=== PATIENT | female | born 1995 | race Caucasian/White ===

== ENCOUNTER 2023-07-07 18:25 | Emergency (ER) | payer MEDICAID, SELFPAY ==
[2023-07-07 18:43] VITALS: BP 140/93; PULSE 78; RESP 20; TEMP 35.6; O2SAT 96; BMI 39.2
--- NOTE | 2023-07-07 19:10 | ED.CHESTPAIN ---
HPI - Chest Pain General Chief Complaint: Chest Pain Stated Complaint: Vertigo/BP issues Time Seen by Provider: 07/07/23 19:01 History of Present Illness HPI narrative: Patient is a 27-year-old woman with history of lower extremity DVT who presents with anterior chest pain. Patient will find this morning but did have minor migraine. She took her a.m. gala D and rested when she woke she was watching television did feel some minor chest pain. This was late this afternoon. Patient presents to the emergency room feeling still somewhat shaky but no further symptoms. No significant headache chest pain shortness a breath orthopnea PND nausea or vomiting. Patient is not on anticoagulation has not had a blood clot in quite some time. No other significant symptoms noted. Patient has been compliant with her other medications. Related Data Home Medications Medication Instructions Recorded Confirmed albuterol sulfate 90 mcg/actuation 1 inh inhalation Q4-6H PRN 07/07/23 07/07/23 aerosol inhaler (ProAir HFA) duloxetine 60 mg capsule,delayed 60 mg PO DAILY 07/07/23 07/07/23 release (Cymbalta) galcanezumab-gnlm 120 mg/mL mg subcut 07/07/23 subcutaneous pen injector (Emgality Pen) ondansetron HCl 4 mg tablet 4 mg PO Q8-12H PRN 07/07/23 07/07/23 propranolol 07/07/23 Allergies Allergy/AdvReac Type Severity Reaction Status Date / Time amoxicillin Allergy Verified 07/07/23 18:35 Review of Systems Status of ROS Reports: 10 or more systems reviewed and unremarkable except as noted in History and below PFSH PFSH Medical History Migraine headache ?G43.909 - Migraine, unspecified, not intractable, without status migrainosus (ICD-10) DVT (deep vein thrombosis) in ?O22.30 - Deep phlebothrombosis in , unspecified trimester (ICD-10) Social History Smoking Status: Never smoker Do you use any of these nicotine containing products: None Second hand tobacco smoke exposure: Yes How often do you have a drink containing alcohol: monthly or less How many standard drinks containing alcohol do you have on a typical day: 3 or 4 How often do you have six or more drinks on one occasion: Less than monthly AUDIT-C Alcohol total score: 3 Non-prescribed substance use: denies use service: No Exam Narrative Exam Narrative: EXAM GENERAL: Patient appears comfortable and well. EYES: No scleral icterus. LYMPH: No supraclavicular or cervical lymphadenopathy. SKIN: Visible skin seen during exam normal or with benign process only. EXT: No dependent lower extremity pedal edema. HEART: Regular rate and rhythm with no murmurs, rubs, or gallops. LUNGS: Clear to auscultation bilaterally with no crackles or wheezes. ABD: Soft, non tender, non distended. PSYCH: Good eye contact, speech is not pressured. Const Vital Signs, click to edit/add: Vital Signs - 24 hr 07/07/23 18:43 Temperature 96.1 F L Pulse Rate [Pulse Oximeter] 78 Respiratory Rate 20 Blood Pressure [Right Upper Arm] 140/93 H Pulse Oximetry 96 Oxygen Delivery Method Room Air Course Course ED Course: Patient seen and examined. She appears to be perfectly fine. I did review her EKG which shows only some nonspecific ST changes. D-dimer troponin CBC basic metabolic panel chest x-ray pending. Vital Signs Vital signs: Initial Vital Signs Temperature 96.1 F L 07/07/23 18:43 Temperature Source Temporal Artery Scan 07/07/23 18:43 Pulse Rate 78 07/07/23 18:43 Pulse Rhythm Regular 07/07/23 18:43 Respiratory Rate 20 07/07/23 18:43 Blood Pressure 140/93 H 07/07/23 18:43 Blood Pressure Mean 108 H 07/07/23 18:43 Blood Pressure Position Supine 07/07/23 18:43 Pulse Oximetry 96 07/07/23 18:43 Oxygen Delivery Method Room Air 07/07/23 18:43 Vital Signs Temperature 96.1 F L 07/07/23 18:43 Pulse Rate 78 07/07/23 18:43 Respiratory Rate 20 07/07/23 18:43 Blood Pressure 140/93 H 07/07/23 18:43 Pulse Oximetry 96 07/07/23 18:43 Oxygen Delivery Method Room Air 07/07/23 18:43 Temperature 96.1 F L 07/07/23 18:43 Pulse Rate 78 12/25/23 18:43 Respiratory Rate 20 07/07/23 18:43 Blood Pressure 140/93 H 07/07/23 18:43 Pulse Oximetry 96 07/07/23 18:43 Oxygen Delivery Method Room Air 07/07/23 18:43 MDM - Chest Pain MDM Narrative Medical decision making narrative: Patient is a 27-year-old woman who comes in with chest pain and in general shakiness. Her symptoms started earlier this afternoon. She has no history of cardiovascular disease but does have a history of DVT. Her D-dimer is negative as is her troponin EKG shows normal sinus rhythm without any acute ST or T-wave changes chest x-ray is unremarkable laboratory studies are stable. She has normal vital signs and normal physical exam. This time I did offer reassurance she can get plenty of rest plenty fluids and follow up with primary physician as needed. Differential Diagnosis Differential diagnosis: Likely fracture of rib, pneumothorax, stable angina, unstable angina pectoris, atypical chest pain, st elevation myocardial infarction, costochondritis and chest pain Lab Data Labs: Lab Results 07/07/23 Range/Units 19:10 WBC 8.12 (4.50-11.00) K/uL RBC 5.09 (4.00-5.20) m/uL Hgb 14.6 (12.0-16.0) gm/dL Hct 42.4 (33.0-51.0) % MCV 83 (80-100) fL MCH 29 (26-34) pg MCHC 34 (32-36) gm/dL RDW Coeff of Nona 12.2 (11.5-15.5) % Plt Count 334 (140-440) K/uL Neut % (Auto) 53.0 (42.0-72.0) % Lymph % (Auto) 37.3 (20-44) % Clarke % (Auto) 7.1 (0.0-11.0) % Eos % (Auto) 2.0 (0.0-7.0) % Baso % (Auto) 0.5 (0.0-3.0) % Neut # (Auto) 4.30 (1.7-7.0) K/uL Lymph # (Auto) 3.03 H (0.90-2.90) K/uL Clarke # (Auto) 0.60 (0.00-0.90) K/UL Eos # (Auto) 0.16 (0.00-0.50) K/uL Baso # (Auto) 0.04 (0.00-0.30) K/uL Abs Immat Gran (auto) 0.01 (0.00-0.30) K/uL Imm/Tot Granulo (auto) 0.1 % D-Dimer Quant (PE/DVT) 0.29 (0.00-0.50) ug/ml Sodium 138 (135-149) mmol/L Potassium 3.7 (3.6-5.1) mmol/L Chloride 104 (96-114) mmol/L Carbon Dioxide 24 (20-32) mmol/L Anion Gap 10 (7-15) mEq/L BUN 12 (5-24) mg/dL Creatinine 0.8 (0.5-1.5) mg/dL Estimated Creat Clear 116.25 Estimated GFR 105 ml/min Glucose 97 (60-115) mg/dL Calcium 9.5 (8.4-10.6) mg/dL Troponin I < 0.01 L (0.01-0.04) ng/mL Discharge Plan Discharge Clinical Impression: Chest pain Patient Disposition: Home, Self-Care Condition: Stable Instructions: Chest Pain (ED) Additional Instructions: Rest Fluids Tylenol Motrin Follow-up with your doctor as needed. Activity Level: No Restrictions Discharge Diet: Regular Prescriptions: No Action propranolol albuterol sulfate [ProAir HFA] 90 mcg/actuation HFA aerosol inhaler 1 inh inhalation Q4-6H PRN duloxetine [Cymbalta] 60 mg capsule,delayed release(DR/EC) 60 mg PO DAILY ondansetron HCl 4 mg tablet 4 mg PO Q8-12H PRN Emgality Pen 120 mg/mL pen injector subcut Follow Up/Referrals: Provider,Not a Local [Primary Care Provider] - Stand Alone Forms: [email or web address] Info Instructions
--- NOTE | 2023-07-07 19:13 | CRLHL7_ITS ---
For Patients: As a result of the Century Cures Act, medical imaging exams and procedure reports are released immediately into your electronic medical record. You may view this report before your referring provider. If you have questions, please contact your health care provider. INDICATION: Shortness of breath. TECHNIQUE: Portable AP chest. FINDINGS: Shallow inspiration. Elevated right hemidiaphragm. Lungs clear. Heart size and pulmonary vascularity normal given technique. No pleural effusion or pneumothorax. Dictated by Justin Farah MD @ 07/07/2023 8:18:10 PM (Electronically Signed)
[2023-07-07 19:23] LABS: Basophils Absolute Auto 0.04 K/uL (0.00-0.30); Basophils Percent Auto 0.5 % (0.0-3.0); Eosinophils Absolute Auto 0.16 K/uL (0.00-0.50); Hematocrit 42.4 % (33.0-51.0); Hemoglobin* 14.6 gm/dL (12.0-16.0); Immature Granulocytes Abs Auto 0.01 K/uL (0.00-0.30); Immature Granulocytes Pct Auto 0.1 %; Lymphocytes Absolute Auto 3.03 K/uL (0.90-2.90); Lymphocytes Percent Auto 37.3 % (20-44); Mean Corpuscular HGB Conc 34 gm/dL (32-36); Mean Corpuscular Hemoglobin 29 pg (26-34); Mean Corpuscular Volume 83 fL (80-100); Monocytes Percent Auto 7.1 % (0.0-11.0); Platelet Count* 334 K/uL (140-440); RDW Coefficient of Variation % 12.2 % (11.5-15.5); Red Blood Count 5.09 m/uL (4.00-5.20); White Blood Count* 8.12 K/uL (4.50-11.00)
[2023-07-07 19:30] LABS: Slide Review Reflex No
[2023-07-07 19:36] LABS: Chloride* 104 mmol/L (96-114)
[2023-07-07 19:37] LABS: Potassium* 3.7 mmol/L (3.6-5.1); Sodium* 138 mmol/L (135-149)
[2023-07-07 19:39] LABS: Creatinine* 0.8 mg/dL (0.5-1.5); Est. Creatinine Clearance* 116.25; Estimated Glomerular Filt Rate 105 ml/min
[2023-07-07 19:40] LABS: Anion Gap 10 mEq/L (7-15); Blood Urea Nitrogen* 12 mg/dL (5-24); Calcium* 9.5 mg/dL (8.4-10.6); Carbon Dioxide* 24 mmol/L (20-32); Glucose* 97 mg/dL (60-115)
[2023-07-07 19:42] LABS: D Dimer Quantitative* 0.29 ug/ml (0.00-0.50)
[2023-07-07 19:53] LABS: Troponin I* < 0.01 ng/mL (0.01-0.04)
== END 2023-07-07 20:11 | disposition home or self-care (01) ==
PROVIDERS: Emergency Provider Internal Medicine
DX: R07.9 Chest pain, unspecified (principal)
CPT/HCPCS: 36415; 71045; 80048; 84484; 85025; 85379; 93005; 99283; 99284

== ENCOUNTER 2023-12-16 23:19 | Emergency (ER) | payer MEDICARE, SELFPAY ==
--- NOTE | 2023-12-16 23:22 | ED_ITS ---
HPI - General Adult General Time Seen by Provider: 23:22 Date Seen: 12/16/23 Chief complaint: Sore Throat Stated complaint: Sore throat, body aches, fever Time Seen by Provider: 12/16/23 23:21 Source: patient, RN notes reviewed and old records reviewed Mode of arrival: ambulatory Limitations: no limitations History of Present Illness HPI narrative: 28-year-old female who comes in today with sore throat, body aches, and fever starting today. She took ibuprofen this morning at about 11:00 a.m.. No other treatment. Some nasal congestion. Denies cough, chest pain, shortness of breath, nausea, vomiting, or diarrhea. Pain with swallowing. 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 Related Data Home Medications ?Medication ?Instructions ?Recorded ?Confirmed albuterol sulfate 90 mcg/actuation 1 - 2 puff inhalation Q4H PRN 06/16/23 06/16/23 aerosol inhaler (Ventolin HFA) dyspnea duloxetine 60 mg capsule,delayed 60 mg PO QAM 06/16/23 06/16/23 release rimegepant 75 mg disintegrating 75 mg PO PRN 06/16/23 06/16/23 tablet (Nurtec ODT) albuterol sulfate 90 mcg/actuation 1 inh inhalation Q4-6H PRN 07/07/23 07/07/23 aerosol inhaler (ProAir HFA) duloxetine 60 mg capsule,delayed 60 mg PO DAILY 07/07/23 07/07/23 release (Cymbalta) escitalopram oxalate 10 mg tablet 10 mg PO DAILY 12/16/23 12/16/23 hydroxyzine HCl 25 mg tablet mg PO 12/16/23 ondansetron 4 mg disintegrating 4 mg Q8H PRN nausea 12/16/23 tablet Previous Rx's ?Medication ?Instructions ?Recorded cefdinir 300 mg capsule 300 mg PO BID 7 days #14 caps 12/17/23 Allergies Allergy/AdvReac Type Severity Reaction Status Date / Time amoxicillin Allergy Mild Rash Verified 12/16/23 23:36 [facility] Medical History (Updated 12/17/23 @ 00:07 by Garrett Henry MD) Migraine headache ?G43.909 - Migraine, unspecified, not intractable, without status migrainosus (ICD-10) DVT (deep vein thrombosis) in ?O22.30 - Deep phlebothrombosis in , unspecified trimester (ICD-10) Social History (System 07/08/23 @ 13:46 by En Cyr) Smoking Status: Never smoker Do you use any of these nicotine containing products: None Second hand tobacco smoke exposure: Yes How often do you have a drink containing alcohol: monthly or less How many standard drinks containing alcohol do you have on a typical day: 3 or 4 How often do you have six or more drinks on one occasion: Less than monthly AUDIT-C Alcohol total score: 3 Non-prescribed substance use: denies use service: No Exam Narrative: Exam Narrative: General: Well-developed and well-nourished, no acute distress Head: Atraumatic and normocephalic Eyes: Pupils are equal reactive, extraocular motions intact, conjunctiva clear ENT: External nose and ears are normal, bilateral tonsillar erythema and exudate with only minimal prominence, no tonsillar soft palate asymmetry, no hoarse voice or drooling Neck: No midline cervical tenderness, full spontaneous range of motion the neck, trachea midline, no adenopathy Heart: Regular rate and rhythm no murmurs or thrills Lungs: Clear to auscultation bilaterally without wheezes or crackles Abdomen: Soft, nontender, nondistended with active bowel sounds Musculoskeletal: No tenderness, deformity, or edema Neurologic: Awake, alert, and oriented x3, no gross focal neurologic deficits, cranial nerves intact as tested Psych: Mood and affect are appropriate Skin: No rashes Const: Vital Signs, click to edit/add: Vital Signs - 24 hr 12/16/23 23:36 Temperature 98.7 F Pulse Rate [Pulse Oximeter] 119 H Respiratory Rate 20 Blood Pressure [Ri ght Upper Arm] 131/84 Pulse Oximetry 96 Oxygen Delivery Me thod Room Air Course Course ED Course: Patient seen and examined, prior records are reviewed he including prior emergency department visit from June 2023 which was for chest pain with negative emergency department cardiac evaluation. Patient presents today with sore throat and fever up to 100?. 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 On exam here, tachycardic, otherwise well-appearing. Handling secretions with no breathing difficulty or voice changes. Posterior or pharyngeal erythema with bilateral tonsillar exudates and erythema. Strep test and COVID test ordered. I did discuss with the patient that given appearance of the tonsils should be treated with antibiotics regardless of strep test result but she feels like she might need this for work. Consider CT scan of the neck but no drooling or voice changes to suggest epiglottitis, no tonsillar asymmetry or soft palate asymmetry to suggest peritonsillar abscess. Patient is given fluids, Toradol, Rocephin in the emergency department and anticipate discharge with Omnicef given history of amoxicillin allergy. Reevaluation(s) Time of Reevaluation #1: 00:06 Reevaluation #1: Labs ordered and independently interpreted by me with positive strep test. Patient is stable for discharge, will be sent with Omnicef, given Decadron in the emergency department prior to discharge. Vital Signs Vital signs: Initial Vital Signs Temperature 98.7 F 12/16/23 23:36 Temperature Source Temporal Artery Scan 12/16/23 23:36 Pulse Rate 119 H 12/16/23 23:36 Pulse Rhythm Regular 12/16/23 23:36 Pulse Strength 3+ Normal 12/16/23 23:36 Respiratory Rate 20 12/16/23 23:36 Blood Pressure 131/84 12/16/23 23:36 Blood Pressure Mean 99 12/16/23 23:36 Pulse Oximetry 96 12/16/23 23:36 Oxygen Delivery Method Room Air 12/16/23 23:36 Vital Signs Temperature 98.7 F 12/16/23 23:36 Pulse Rate 119 H 12/16/23 23:36 Respiratory Rate 20 12/16/23 23:36 Blood Pressure 131/84 12/16/23 23:36 Pulse Oximetry 96 12/16/23 23:36 Oxygen Delivery Method Room Air 12/16/23 23:36 Temperature 98.7 F 12/16/23 23:36 Pulse Rate 119 H 12/16/23 23:36 Respiratory Rate 20 12/16/23 23:36 Blood Pressure 131/84 12/16/23 23:36 Pulse Oximetry 96 12/16/23 23:36 Oxygen Delivery Method Room Air 12/16/23 23:36 Medical Decision Making Lab Data Labs: Lab Results 12/16/23 Range/Units 23:32 Group A Strep DNA DETECTED A (Not Detectd) Discharge Plan Discharge Clinical Impression: Acute streptococcal pharyngitis Patient Disposition: Home, Self-Care Condition: Stable Instructions: Strep Throat (DC) Additional Instructions: Fluids and rest Tylenol and ibuprofen as needed for fever and pain Omnicef as prescribed starting this evening Activity Level: Activity as Tolerated Discharge Diet: Regular Prescriptions: New cefdinir 300 mg capsule 300 mg PO BID 7 Days Qty: 14 0RF No Action duloxetine 60 mg capsule,delayed release(DR/EC) 60 mg PO QAM albuterol sulfate [Ventolin HFA] 90 mcg/actuation HFA aerosol inhaler 1 - 2 puff inhalation Q4H PRN (Reason: dyspnea) Nurtec ODT 75 mg tablet,disintegrating 75 mg PO PRN albuterol sulfate [ProAir HFA] 90 mcg/actuation HFA aerosol inhaler 1 inh inhalation Q4-6H PRN duloxetine [Cymbalta] 60 mg capsule,delayed release(DR/EC) 60 mg PO DAILY hydroxyzine HCl 25 mg tablet PO ondansetron 4 mg tablet,disintegrating 4 mg Q8H PRN (Reason: nausea) escitalopram oxalate 10 mg tablet 10 mg PO DAILY Follow Up/Referrals: Provider,Not a Local [Referring] - Stand Alone Forms: [facility] Info Instructions
[2023-12-16 23:36] VITALS: BP 131/84; PULSE 119; RESP 20; TEMP 37.1; O2SAT 96; BMI 38.7
[2023-12-16 23:59] LABS: Strep A DNA Probe* DETECTED (Not Detectd)
[2023-12-17] MEDS: cefTRIAXone 1 GM in 0.9 % SODIUM CHLORIDE Mini-bag 100 ML IVPB
[2023-12-17] MEDS: KETOROLAC 15 MG/ML inj IVP
[2023-12-17] MEDS: 0.9 % SODIUM CHLORIDE 1000 ml 1,000 ML 6000 ML IV
[2023-12-17 00:15] LABS: PCR FLU A Negative PCR FLU A (Negative); PCR FLU B Negative PCR FLU B (Negative); PCR RSV Negative PCR RSV (Negative); SARS PCR* Negative SARS-CoV-2 (Negative)
[2023-12-17] MEDS: dexAMETHasone 10 MG/ML inj IVP (00:26)
== END 2023-12-17 01:31 | disposition home or self-care (01) ==
PROVIDERS: Emergency Provider Family Medicine; PCP Student in an Organized Health Care Education/Training Program
DX: J02.0 Streptococcal pharyngitis (principal)
CPT/HCPCS: 87631; 87651; 96365; 96375; 99283; 99284; J0696; J1100; J1885; J7030

== ENCOUNTER 2024-09-01 17:45 | Emergency (ER) | payer MEDICAID, SELFPAY ==
--- OUTSIDE RECORDS SUMMARY | 2024-09-01 17:48 | XMS_ITS | Clinical Summary ---
[facility] Address [address] [place] [address] Care Team Providers Care Telephone Messenger Name Role Phone Elle Billingsley APRN, VIET Primary Care Provider + Source Comments You are receiving this document as you are listed as the primary care provider,follow-up provider, or the patient has been referred to you for consultation.This is in compliance with the Medicare and[facility] Hospitalca[facility] EHR Incentive Program,which states Providers who transition their patient to another setting of careor provider of care or refers their patient to another provider of care shouldprovide summary care record for each transition of care or referral. [facility] Allergies Active Allergy Reactions Criticality Noted Date Comments Amoxicillin Rash 09/15/2019 Medications traMADol (ULTRAM) 50 MG tabletIndications: Chronic pain of right knee Take 1 Tablet by mouth every 6 hours as needed. 20 Tablet 04/06/20 21 Active Additional Information Patient not taking.Reported on 09/01/2024 FLUoxetine (PROZAC) 40 MG capsule Take 40 mg by mouth. 03/12/20 21 Active loratadine (CLARITIN) 10 MG tablet 02/14/20 21 Active propranolol (INDERAL) 40 MG tablet Take 40 mg by mouth. 10/19/19 21 Active topiramate (TOPAMAX) 100 MG tablet Take 100 mg by mouth. 03/12/20 21 Active ondansetron (ZOFRAN-ODT) 4 MG disintegrating tabletIndications: Nausea Take 1 Tablet (4 mg) by mouth every 8 hours as needed for Nausea. 15 Tablet 09/04/19 24 Active ALBUterol sulfate HFA 108 (90 Base) MCG/ACT inhaler Inhale 2 Puffs every 4 hours as needed for Wheezing. 1 Each 07/08/20 24 Active AJOVY 225 MG/1.5ML SOAJ 07/22/19 25 Active NURTEC 75 MG disintegrating tablet Take 1 Tablet (75 mg) by mouth every 24 hours as needed. 08/24/19 25 026 Active Hospital, Clinic, or Other Facility Administered Medication Ordered Dose Route Frequency Start Date End Date Status ketorolac (TORADOL) injection 15 mgIndications:Other migraine without status migrainosus, intractable 15 mg IM ONCE 09/01/2024 09/01/2024 Ended Active Problems Problem Noted Date Diagnosed Date Chronic migraine without aur a without status migrainosus, not intractable 09/08/2023 Depression, recurrent 09/08/2023 ALEXIA (generalized anxiety disorder) 09/08/2023 Moderate episode of recurrent major depressive d isorder 02/03/2023 Chronic pain of right knee 01/29/2022 Morbid obesity 08/01/2020 Chronic tension-type headache, not intractable 1 09/03/2019 Mild intermittent asthma without complication Cervical cancer screening 12/29/2018 Overview (12/29/2018): From visit on 02/27/16: History of abnormal pap tests? No 2019 LSIL 23 y.o. Plan: Pap 12/2019 Anxiety 11/05/2018 Carpal tunnel syndrome of right wrist 12/14/2017 Eczema 09/14/2015 Asthma, exercise induced 08/21/2012 Resolved Problems Problem Noted Date Diagnosed Date Resolved Date Streptococcal sore throat 10/17/2005 Overview (03/05/2017): LW Onset: [id number] ; Pharyngitis Streptococcal Encounters Date Type Department Care Team Description 09/01/2024 9:20 AM COMMERCIAL [employer]STATE APPRAISER Office Visit [id number] [address] [place] [address] Rashaad Davies PAMargaritoC Other migraine without status migrainosus, intractable 07/30/2024 11:20 AM COMMERCIAL [employer] ESTATE APPRAISER Office Visit Orthopedics at [facility] Orthopedic [facility] [address] [place] [address] Chaparrita Deng DPM Peroneal tendonitis, right (Primary Dx); Gastrocnemius equinus, right; Gastrocnemius equinus, left 07/26/2024 Telephone Orthopedics at [facility] [address] [place] [address] Chaparrita Deng DPM Future Appointments 07/08/2024 6:50 PM [employer] APPRAISER Ancillary Procedure [facility] [id number] [place] [phone] Hanna Parekh MD Acute cough 07/08/2024 5:20 PM COMM[employer]CIAL [employer] APPRAISER Office Visit [facility] [address] [facility] [id number] [place] [phone] Hanna Parekh MD Acute cough; Mild intermittent asthma with acute exacerbation (HRC) from Last 3 Months Immunizations Immunization Administration Dates Next Due 4vHPV (Gardasil) 07/01/2014 9vHPV (Gardasil 9) 04/13/2019,04/23/2018 Bexsero (Meningococcal Group B Vaccine) 04/23/20 18 DTP-Hib (Tetramune) 05/16/1998,03/29/1998 DTaP 12/20/2002,06/25/1999,1997 Flu Vac (3+ yrs) 06/16/2003 Flu Vac Preserv Free (3+yrs) 04/12/2010,03/14/20 09 HepB Ped/Adol (0-18 yrs) 05/16/1998,1997,0 1997 Hib (HbOC) 01/05/1999,1997 IPV (Polio) 12/20/2002,03/29/1998,1997 Influenza IIV4 (Quadrivalent) 0.5mL (26310) 07/2018,04/12/2014,03/30/2013 MCV4 (Menactra) 03/14/2009 MMR 12/20/2002,01/05/1999 OPV, Trivalent (Orimune or tOPV) 01/05/1999 TDAP (ADACEL) 03/20/2010 Varicella 07/01/2014,03/20/2010,01/05/1999 Family History Medical History Relation Name Comments Cancer, Prostate Maternal Grandfather Relation Name Status Comments Maternal Grandfather Social History Tobacco Use Types Packs/Day Years Used Date Smoking Tobacco: Never Smokeless Tobacco: Never Alcohol Use Standard Drinks/Week Comments Yes 1 (1 standard drink = 0.6 oz pur e alcohol) Comments No Sex and Gender Information Value Date Recorded Sex Assigned at Not on file Legal Sex Female 7:06 AM CDT Gender Identity Not on file Sexual Orientation Not on file Last Filed Vital Signs Vital Sign Reading Time Taken Comments Blood Pressure 139/93 09/01/2024 8:56 AM [employer] APPR[employer]ISER Pulse 86 09/01/2024 8:56 AM [employer] APPRAISER Temperature 36.7 C (98 F) 09/01/2024 8:56 AM COMM[employer] APPRAISER Respiratory Rate 16 09/01/2024 8:56 AM COMM[employer] APPRAISER Oxygen Saturation 97% 09/01/2024 8:56 AM COMMERCIAL [employer] APPRAISER Inhaled Oxygen Concentration - - Weight 117.8 kg (259 lb 9.6 oz) 09/15/2019 4:05 PM [employer] APPRAISER Height 177.8 cm (5' 10) 09/15/2019 4:05 PM [employer] APPRAISER Body Mass Index 37.25 09/15/2019 4:05 PM [employer] APPRAISER Plan of Treatment Health Maintenance Due Date Last Done Comments Hep C Screening (Preventive Services) 1997 HIV Screening (Preventive Services) 2013 Adult Preventive Visit 10/04/2015 03/16/2002 Pneumococcal (1 of 2 - PCV) 2016 Meningococcal B (2 of 2 - Bexsero SCDM 2-dose series) 10/22/2018 04/23/2018 DTaP/Tdap/Td (7 - Tdap) 03/20/2020 03/20/20, 12/20/2002, 06/25/1999, Additional history exists Asthma ACT (score of 20 or higher) 09/14/2020 09/15/2019, 11/05/2018, 07/16/2016 Cervical Cancer Screening 08/01/2021 08/01/2020, 04/2019 COVID-19 Vaccine ( season) 2024 09/11/2020, 08/14/2020 Influenza (#1) 2024 04/13/2019, 07/2016, 05/08/2016, Additional history exists Zoster/Shingles (1 of 2) 10/04/2047 HepB Completed 05/16/1998, 09/1997, 1997 Hib Completed 01/05/1999, 09/1997, 03/29/1998, Additional history exists IPV (Polio) Completed 12/20/2002, 12/13, 01/05/1999, Additional history exists MCV4 Aged Out 03/14/2009 No longer eligi ble based on patient's age to complete this topic Varicella Completed 07/01/2014, 01/2010, 01/05/1999 HPV Vaccine Completed 04/13/2019, 04/13, 07/01/2014 Chlamydia Discontinued 08/01/2020, 12/12, 02/27/2016, Additional history exists HepA Aged Out No longer eligi ble based on patient's age to complete this topic Procedures Procedure Name Priority Date/Time Associated Diagnosis Comments XR CHEST 2 VIEWS STAT 07/08/2024 6:54 PM [employer] APPR[employer]ISER Acute cough CHLAMYDIA & GC (14 YEARS & OLDER) Routine 12/21/2018 8:38 AM CDT Screening for STD (sexually transmitted disease) PAP TEST Routine 12/21/2018 8:38 AM CDT Screening for cervical cancer from Last 3 Months or Most Recently Relevant to Health Maintenance Results * XR Chest 2 Views (07/08/2024 6:54 PM [employer] APPRAISER) Anatomical Region Laterality Modality Chest, Lung Digital Radiogra phy 07/08/2024 6:49 PM [employer] APPRAISER Narrative 07/08/2024 6:57 PM [employer] APPRAISER COMPARISON: None. FINDINGS: Mild asymmetric elevation of the right hemidiaphragm. Normal cardiomediastinal silhouette and pulmonary vasculature. The lungs appear clear. No pneumothorax or pleural effusion. Bony thorax is unremarkable. Procedure Note Gerson Bourgeois MD - 07/08/2024 COMPARISON: None. FINDINGS: Mild asymmetric elevation of the right hemidiaphragm. Normalcardiomediastinal silhouette and pulmonary vasculature. The lungs appearclear. No pneumothorax or pleural effusion. Bony thorax is unremarkable. us Hanna Parekh MD RAD GD Final Result * (ABNORMAL) PAP Test (12/21/2018 8:38 AM CDT) Case Report Pap Case: [id number] Authorizing Provider: Elle Billingsley APRN, CNP Collected: 12/21/2018 08:38 AM Ordering Location: [facility] Received: 12/21/2018 09:02 AM First Screen: Kary Salinas Pathologist: Karlene Quiros MD Specimen: Pap Test, Routine, Cervix/Endocervix 12/28/2018 4:55 PM [facility] Pap Specimen Adequacy Satisfactory for evaluation, endocervical/palmer sformation zone component present. 12/28/2018 4:55 PM [facility] Pap Interpretation Low-grade squamous intraepithelial lesion (LSIL), encompassing HPV/mild dysplasia/JESE 1.(A) 12/28/2018 4:55 PM [facility] Gross Description The specimen is received in SurePath fixative and properly labeled. 1 Pap-stained SurePath slide is prepared. 12/28/2018 4:55 PM [facility] Pap Disclaimer The Pap test is a screening test designed to aid in the detection of cervical cancer and its precursor lesions. It is not a diagnostic procedure and should not be used as the sole means of detecting cervical cancer. Both false-positive and false-negative reports may occur. 12/28/2018 4:55 PM [facility] Embedded Images 9 4:55 PM [facility] Other Specimen Type ENTIRE ENDOCERVIX / Unknown 12/21/2018 8:38 AM CDT 12/21/2018 9:02 AM CDT Comment:LMP: Patient's last menstrual period was 11/26/2018 (approximate). us Elle Billingsley APRN, CNP LAB PATHOLOGY Final Re sult [address] [phone] * Chlamydia & GC (14 Years and Older) (12/21/2018 8:38 AM CDT) Chlamydia Trachomatis STD Not Detected Not Detected 12/21/2018 5:20 PM CDT [facility] N. gonorrhoeae STD Not Detected Not Detected 12/21/2018 5:20 PM CDT [facility] Swab (Source Required) ENTIRE ENDOCERVIX / Unknown Non-blood Collection / Unknown 12/21/2018 8:38 AM CDT 12/21/2018 9:01 AM CDT Narrative [facility] - 12/21/2018 5:20 PM CDT Test performed by Molecular Detection us Elle Billingsley GAS APPLIANCE SERVICER HELPER, ENVIRONMENTAL ASSISTANT LAB_1 Final Re sult [facility] [id number] [place] [address] from Last 3 Months or Most Recently Relevant to Health Maintenance Insurance [employer] [facility] [employer] PMA [facility] NONPROFIT INSURANCE TRUST [id number] Advance Directives * Full Code (Latest Code Status on File) Date Activated Date Inactivated Comments 01/11/2019 4:06 PM 01/11/2019 7:48 PM * No Code Status Date Activated Date Inactivated Comments 07/03/2004 5:24 PM 07/03/2004 6:24 PM Care Teams Telephone Messenger Relationship Specialty Start Date End Date Elle Billingsley APRN, ENVIRONMENTAL ASSISTANT PCP - General Nurse Practitioner 11/05/18
--- OUTSIDE RECORDS SUMMARY | 2024-09-01 17:48 | XMS_ITS | Clinical Summary ---
Author Organization [facility] Address [address] [place] [address] Care Team Providers Care Wash Driller Helper Name Role Phone Eva Pond Primary Care Provider [phone] Allergies Active Allergy Reactions Criticality Noted Date Comments Amoxicillin Rash Medium 09/06/2019 Medications hydrOXYzine HCL (ATARAX) 25 mg tabletIndications: ALEXIA (generalized anxiety disorder) Take 1 Tablet (25 mg) by mouth every 6 hours if needed for Anxiety (Insomnia). 30 Tablet 09/08/19 24 Active triamcinolone 0.5% (ARISTOCORT) 0.5 % creamIndications:I rritant contact dermatitis, unspecified trigger Apply topically to affected area(s) two times daily. 15 g 09/08/19 24 Active durable medical equipment (DME)Indications:P ain of right heel PLANTAR FASCIITIS NIGHT SPLINT, MEDIUM, REF: [phone] 1 Each 05/25/20 24 Active albuterol HFA (PRO-AIR; VENTOLIN; PROVENTIL) 90 mcg/actuation inhaler Inhale 2 Puffs by mouth every 4 hours if needed. 07/08/20 24 Active fremanezumab-vfrm (Ajovy Syringe) 225 mg/1.5 mL subcutaneous syringe Inject subcutaneous once a month. Active ondansetron (ZOFRAN) 4 mg tablet Take by mouth. Activ e rimegepant (NURTEC) 75 mg orally disintegrating tablet Place 75 mg under the tongue once every other day. Active oxyCODONE-acetamin ophen (Percocet) 5-325 mg per tabletIndications: S/P carpal tunnel release Take 1 Tablet by mouth every 6 hours if needed for Pain. Max acetaminophen dose: 4000mg in 24 hrs. 15 Tablet 07/28/19 25 Active Active Problems Problem Noted Date Diagnosed Date S/P carpal tunnel release - DOS 07/28/2024 - Dr. Barksdale 08/17/2024 Pap smear for cervical cancer screening 01/14/20 24 Overview (01/16/2024): 12/2018 LSIL (age 23) 07/2020 NIL 12/2023 NIL/ HPV negative Plan: PAP/HPV due 12/2028 ALEXIA (generalized anxiety disorder) 09/08/2023 Depression, recurrent 09/08/2023 Chronic migraine without aur a without status migrainosus, not intractable 09/08/2023 Morbid obesity 08/01/2020 Mild intermittent asthma without complication Carpal tunnel syndrome of right wrist 12/14/2017 Overview (06/11/2024): May 2024: EMG confirmed Carpal Tunnel Syndrome right side, Moderate. Eczema 09/14/2015 Resolved Problems Problem Noted Date Diagnosed Date Resolved Date Moderate episode of recurren t major depressive disorder 02/03/2023 07/22/2024 Cervical cancer screening 12/29/2018 Overview (07/22/2024): From visit on 02/27/16: History of abnormal pap tests? No 2019 LSIL 23 y.o. Plan: Pap 12/2019 Encounters Date Type Department Care Team Description 08/17/2024 8:30 AM VIROLOGY TEACHER Office Visit [facility] [address] [place] [address] Eva Randall PA Post-op (Right carpal tunnel release) 08/17/2024 Travel 07/28/2024 11:58 AM VIROLOGY TEACHER - 07/28/2024 11:59 PM VIROLOGY TEACHER Hospital Encounter James Barksdale MD 07/28/2024 Orders Only [facility] [address] [facility] [address] [place] [address] James Barksdale MD <No scans attached> 07/28/2024 Surgery [facility] [address] [facility] [address] [place] [address] James Barksdale MD CPT 53177 - CARPAL TUNNEL RELEASE - RT WRIST EVA WILL BE THERE NO REP POST OP APPTS MADE 07/28/2024 Orders Only [facility] [address] [place] [address] Eva Randall PA <No scans attached> 07/22/2024 3:30 PM VIROLOGY TEACHER Office Visit [facility] [address] [place] [address] Dakota Munoz MD Preoperative Exam (07/28/24 /Rt Carpal Tunnel/Dr. Barksdale/[facility] /) 07/22/2024 Travel 07/13/2024 2:15 PM VIROLOGY TEACHER Office Visit [facility] [address] [place] [address] James Barksdale MD Consult (right hand) 07/13/2024 2:10 PM VIROLOGY TEACHER Ancillary Procedure [facility] [address] [place] [address] 07/13/2024 Travel 07/08/2024 Travel 06/25/2024 9:30 AM VIROLOGY TEACHER Telemedicine [facility] [address] [place] [address] Shane Oconnell NP Influenza Like Illness (cough, runny nose, sinus pressure x 2 days) 06/25/2024 Travel 06/09/2024 8:06 AM VIROLOGY TEACHER - 06/09/2024 11:59 PM VIROLOGY TEACHER Hospital Encounter [facility] EMG/EEG/EP [address] [facility] [address] [place] [address] Lionel Chamberlain MD Beck, Elizabeth Haule, MD Chronic pain of right thumb; Paresthesias in right hand 06/09/2024 Travel from Last 3 Months Immunizations Name Administration Dates Next Due DTP-HIB 05/16/1998,03/29/1998 DTaP 12/20/2002,06/25/1999,1997 HIB HbOC (HibTITER) 01/05/1999,1997 HPV 9 (Gardasil 9) 04/13/2019,04/23/2018 Hepatitis B (Peds) 05/16/1998,1997, 998 Human Papilloma Virus Vaccine 07/01/2014 Inactivated Polio Vaccine 12/20/2002,03/29/1998, 1997 Influenza Virus, Unspecified 04/12/2010 Influenza, IIV3 (Age >=3 years) 06/16/2003 Influenza, IIV4 04/13/2019,05/08/2016,04/12/2014 Influenza, IIV4 (Age 6-35 Mos) 03/30/2013 Influenza, RIV3 (Age =>18 Years) 06/13/2017 MMR 12/20/2002,01/05/1999 Meningococcal B 04/23/2018 Meningococcal Vaccine (Menactra) 03/14/2009 Oral Polio Vaccine 01/05/1999 Polio (Oral Polio Vaccine,Unspecified) 9 Td (Age >=7 Years) 12/31/2022 Tdap 03/20/2010 Varicella Vaccine 07/01/2014,03/20/2010,01/05/19 99 Social History Tobacco Use Types Packs/Day Years Used Date Smoking Tobacco: Never Smokeless Tobacco: Never Tobacco Cessation:Counseling Given: Yes Alcohol Use Standard Drinks/Week Comments Yes 0 (1 standard drink = 0.6 oz pur e alcohol) Occasional PHQ-2 Answer Date Recorded PHQ-2 TOTAL SCORE 2 10/07/2023 Social Connections Answer Date Recorded Do you often feel lonely or isolated from those around you? 0 10/07/2023 Financial Resource Strain Answer Date R ecorded Difficulty of Paying Living Expenses 3 10/07/2023 Difficulty of Paying Living Expenses Not on file 10/07/2023 Food Insecurity Answer Date Recorded Do you worry your food will run out before you are able to buy more? 1 10/07/2023 Transportation Needs Answer Date Record ed Does lack of transportation keep you from medica l appointments? 1 10/07/2023 Does lack of transportation keep you from work, meetings or getting things that you need? 1 10/07/2023 Housing Stability Answer Date Recorded What is your housing situation today? 1 10/07/2023 Utilities Answer Date Recorded Do you have trouble paying f or utilities (for example, heat, electricity, water, phone)? 1 10/07/2023 Comments No Sex and Gender Information Value Date Recorded Sex Assigned at Not on file Legal Sex Female 7:09 PM CDT Gender Identity Not on file Sexual Orientation Not on file Obstetrics History Last Filed Vital Signs Vital Sign Reading Time Taken Comments Blood Pressure 126/84 07/22/2024 3:33 PM VIROLOGY TEACHER Pulse 84 07/22/2024 3:33 PM VIROLOGY TEACHER Temperature 36.2 C (97.1 F) 07/22/2024 3:33 PM VIROLOGY TEACHER Respiratory Rate 14 07/22/2024 3:33 PM VIROLOGY TEACHER Oxygen Saturation 98% 07/22/2024 3:33 PM VIROLOGY TEACHER Inhaled Oxygen Concentration - - Weight 135.2 kg (298 lb 1.6 oz) 07/22/2024 3:33 PM VIROLOGY TEACHER Height 180.2 cm (5' 10.95) 07/22/2024 3:[address] Body Mass Index 41.64 07/22/2024 3:33 PM VIROLOGY TEACHER Plan of Treatment Upcoming Encounters Date Type Department Care Team (Late st Contact Info) Description 09/28/2024 8:00 AM CDT Office Visit [facility] [address] [place] [address] Eva Randall PA [address] [place] [address] 11/22/2024 8:00 AM CDT Office Visit [facility] [address] [facility] [address] [place] [address] James Barksdale MD [address] [place] [address] Health Maintenance Due Date Last Done Comments HIV for age 15-65 2012 Hepatitis C screening for age 18-79 10/04/2015 COVID-19 vaccine series ( season) 2024 09/11/2020, 08/14/2020 Influenza for age 9-49 03/14/2024 9, 06/13/2017, 05/08/2016, Additional history exists Depression screening for age 12+ 10/06/2024 10/07/2023, 09/10/2023, 09/08/2023 BMI (ht and wt on same day) for age 18+ 07/22/2025 07/22/2024, 01/07/2024, 02/14/2016 Pap test for age 21-65 01/06/2029 , 01/07/2024, 08/01/2020 (Verified in Care Everywhere or Patient Record) Tetanus booster 12/31/2032 12/31/2022, 03/20/2010 Tdap Completed 03/20/2010 HPV series for age 9-26 Completed 04/13/20 19, 04/23/2018, 07/01/2014 Pneumococcal series for age 6-49 Aged Out No longer eligible based on patient's age to complete this topic Procedures Procedure Name Priority Date/Time Associated Diagnosis Comments XR HAND 3 VIEWS RIGHT Routine 07/13/2024 2:10 PM VIROLOGY TEACHER Right hand pain EMG Routine 06/09/2024 Chronic pain of right thumb Paresthesias in right hand PATTERN DEVELOPER THIN PREP PAP SCREEN IMAGED Routine 01/07/2024 7:20 AM CDT Screening for malignant neoplasm of cervix SURGICAL PROCEDURE (TYPE PROCEDURE DESCRIPTION BELOW) Elective Carpal tunnel syndrome of right wrist Right hand pain from Last 3 Months or Most Recently Relevant to Health Maintenance Results * XR HAND 3 VIEWS RIGHT (07/13/2024 2:10 PM VIROLOGY TEACHER) Anatomical Region Laterality Modality HANDS, HAND R Computed Radiogr aphy 07/15/2024 6:35 AM VIROLOGY TEACHER Narrative 07/15/2024 6:35 AM VIROLOGY TEACHER For Patients: As a result of the Cures Act, medical imaging exams and procedure reports are released immediately into your electronic medical record. You may view this report before your referring provider. If you have questions, please contact your health care provider. Indication: Pain Technique: Right hand 3 views. Comparison: None Findings: Bones: Alignment is normal. No fractures or bone lesions. Joint spaces: Unremarkable. Soft tissues: Unremarkable. Impression: Unremarkable right hand. Dictated by Basim Hwang MD @ 07/15/2024 6:35:47 AM (Electronically Signed) Procedure Note Gerson Hwang MD - 07/15/2024 For Patients: As a result of the Cures Act, medical imagingexams and procedure reports are released immediately into your electronicmedical record. You may view this report before your referring provider.If you have questions, please contact your health care provider. Indication: Pain Technique: Right hand 3 views. Comparison: None Findings: Bones: Alignment is normal. No fractures or bone lesions. Joint spaces: Unremarkable. Soft tissues: Unremarkable. Impression: Unremarkable right hand. Dictated by Basim Hwang MD @ 07/15/2024 6:35:47 AM (Electronically Signed) us James Barksdale MD GENERAL IMAGING Final Resul t * EMG (06/09/2024) us Lionel Chamberlain MD NEUROLOGY ORD Final Res ult * PATTERN DEVELOPER THIN PREP PAP SCREEN IMAGED [[id number]] (01/07/2024 7:20 AM CDT) Case Report Gynecologic Cytology Report Case: [id number] Authorizing Provider: Eva Pond PA Collected: 01/07/2024 0720 Ordering Location: [facility] Received: 01/07/2024 0748 Clinic First Screen: Brian Rodrigues Specimen: PATTERN DEVELOPER ThinPrep Vial Screening, Cervical 01/14/2024 1:58 PM CDT [facility] INTERPRETATION/ RESULT NEGATIVE FOR INTRAEPITHELIAL LESION OR MALIGNANCY (NIL) (none) 01/14/2024 1:58 PM CDT [facility] IMEN ADEQUACY Satisfactory for evaluation No endocervical component seen 01/14/2024 1:58 PM CDT [facility] EN[facility] HPV REQUEST HPV not requested 2023 1:58 PM CDT [facility] Date of LMP 12/13/23 01/14/2024 1:58 PM CDT [facility] Last Pap Date 08/01/20 01/14/2024 1:58 PM CDT [facility] Last Pap Result NIL 1:58 PM CDT [facility] Abnormal Pap or Aurora Bx in last 5 years No 01/14/2024 1:58 PM CDT [facility] Menstrual Status Irregular Periods 01/14/2024 1:58 PM CDT [facility] Aurora Bx Done Today No 01/14/2024 1:58 PM CDT [facility] Additional Information None given 01/14/2024 1:58 PM CDT [facility] Comment: Cytology is screened at [facility] - [address], [place] [address] [facility] - [address] [place] [address] and [facility] - [address] [place] [address] Interpreted at [facility] - [address], [place] [address] Automated Review Successful 01/14/2024 1:58 PM CDT [facility] Comment:Specimen processed s uccessfully by automated jackscrew man device, ThinPrep Imaging System, [employer] Note The pap test is a screening technique, not a diagnostic procedure. It is used primarily to screen for squamous cancers and precursor lesions. Published studies have shown that it is subject to both false negative and false positive results. The pap test should not be used as the sole means to diagnose or exclude pre-malignant and malignant lesions. 01/14/2024 1:58 PM CDT [facility] Other (Cervical) Non-Blood / Unknown 01/07/2024 7:20 AM CDT 01/07/2024 7:48 AM CDT Eva TOLENTINO PATHOLOGY/CYTOLOGY Final Result [facility]-CENTRAL LABORATORY [address] [place] [address], [place] from Last 3 Months or Most Recently Relevant to Health Maintenance Insurance [facility] [employer] [employer] Care Teams Wash Driller Helper Relationship Specialty Start Date End Date Eva Pond PA [address] [place] [address] PCP - General Physician Feather Curling Machine Operator 09/08/23
--- OUTSIDE RECORDS SUMMARY | 2024-09-01 17:48 | XMS_ITS | Clinical Summary ---
Author Organization [facility] Address [address] [place] [address] Care Team Providers Care Millinery Designer Name Role Phone Brandi Pond Primary Care Provider [phone] Allergies Active Allergy Reactions Criticality Noted Date Comments Amoxicillin Rash Low 03/03/2024 Medications escitalopram (LEXAPRO) 10 MG tablet 11/02/19 24 Active fremanezumab-vfr m (AJOVY) SOSY subcutaneous Inject subcutaneously every 30 days. Active rimegepant (NURTEC) [address] 75 mg under the tongue every 48 hours. Active ondansetron (ZOFRAN) 4 MG tablet Take by mouth every 8 hours as needed for nausea. Active Social History Tobacco Use Types Packs/Day Years Used Date Smoking Tobacco: Never Smokeless Tobacco: Never Tobacco Cessation:Counseling Given: Not Answered Comments No Sex and Gender Information Value Date Recorded Sex Assigned at Not on file Legal Sex Female 5:07 PM CDT Gender Identity Not on file Sexual Orientation Not on file Last Filed Vital Signs Vital Sign Reading Time Taken Comments Blood Pressure 124/85 03/03/2024 5:52 PM CDT Pulse 84 03/03/2024 5:52 PM CDT Temperature 36.4 C (97.6 F) 03/03/2024 5:52 PM CDT Respiratory Rate 16 03/03/2024 5:52 PM CDT Oxygen Saturation 97% 03/03/2024 5:52 PM CDT Inhaled Oxygen Concentration - - Weight 133.8 kg (295 lb) 03/03/2024 5:52 PM CDT Height - - Body Mass Index - - Plan of Treatment Health Maintenance Due Date Last Done Comments ADVANCE CARE PLANNING 1997 ANNUAL REVIEW OF HM ORDERS 1997 YEARLY PREVENTIVE VISIT 2000 HIV SCREENING 2012 HPV IMMUNIZATION (1 - 3-dose series) 2012 HEPATITIS C SCREENING 10/04/2015 HEPATITIS B IMMUNIZATION (1 of 3 - 19+ 3-dose series) 2016 PAP 2018 DTAP/TDAP/TD IMMUNIZATION (1 - Tdap) 2022 COVID-19 Vaccine (1 - 2023-2 5 season) 2024 INFLUENZA VACCINE (#1) 2024 PHQ-2 (once per calendar year) 2024 ZOSTER IMMUNIZATION (1 of 2) 10/04/2047 RSV VACCINE (1 - 1-dose 75+ series) 2072 MENINGITIS IMMUNIZATION Aged Out No l onger eligible based on patient's age to complete this topic Pneumococcal Vaccine: Pediat rics (0 to 5 Years) and At-Risk Patients (6 to 49 Years) Aged Out No longer eligi ble based on patient's age to complete this topic RSV MONOCLONAL ANTIBODY Aged Out No l onger eligible based on patient's age to complete this topic Insurance NONPROFIT INSURANCE [employer] Care Teams Millinery Designer Relationship Specialty Start Date End Date Brandi Pond PA [address] [place] [address] PCP - General Family Practice 03/03/24
--- OUTSIDE RECORDS SUMMARY | 2024-09-01 17:48 | XMS_ITS | Encounter Summary ---
Author Organization [facility] Address [address] [place] [address] Care Team Providers Care Accessioner Name Role Phone Elle Billingsley APRN, BILL OF MATERIALS CLERK Primary Care Provider + Reason for Visit * Reason Comments Future Appointments Encounter Details Date Type Department Care Team (Late st Contact Info) Description 07/26/2024 Telephone Orthopedics at [facility] Orthopedic [address] [id number] Chaparrita Deng DPM [address] [place] [id number] Future Appointments Social History Tobacco Use Types Packs/Day Years Used Date Smoking Tobacco: Never Smokeless Tobacco: Never Alcohol Use Standard Drinks/Week Comments Yes 1 (1 standard drink = 0.6 oz pur e alcohol) Comments No Sex and Gender Information Value Date Recorded Sex Assigned at Not on file Legal Sex Female 7:06 AM CDT Gender Identity Not on file Sexual Orientation Not on file documented as of this encounter Nursing Notes * Doris Neil - 07/26/2024 2:02 PM CST Patient call back and confirmed Second Opinion for Right heel , EXTERNAL FILMS @ [facility] She was not given a diagnosis and saw a non op at [facility] Future Appointments Date Time Provider Department Center 07/30/2024 11:20 AM Chaparrita Deng DPM [facility] ETING WRITER * Mavis Lindsey LPN - 07/26/2024 1:43 PM CST Message left to confirm with patient about upcoming appt with Dr. Deng. Please specify if the appointment is a Second Opinion for Right heel or if it is for Right ankle pain. Mavis Lindsey LPN 07/26/2024, 1:44 PM ETING WRITER documented in this encounter Plan of Treatment Not on file documented as of this encounter Visit Diagnoses Not on filedocumented in this encounter Care Teams Accessioner Relationship Specialty Start Date End Date Elle Billingsley APRN, VIET PCP - General Nurse Practitioner 11/05/18 documented as of this encounter
--- OUTSIDE RECORDS SUMMARY | 2024-09-01 17:48 | XMS_ITS | Encounter Summary ---
[facility] Organization [facility] Address [address] [place] [address] Care Team Providers Care Filter Worker Name Role Phone Elle Billingsley APRN, PUBLICITY WRITER Primary Care Provider + Reason for Visit * Reason Comments HEADACHE,MIGRAINE Encounter Details Date Type Department Care Team (Late st Contact Info) Description 09/01/2024 9:20 AM MOLD MACHINE OPERATOR Office Visit [facility] [address] [place] [phone] aRshaad Davies, PA-C [address] [facility] [address] [place] [id number] Other migraine without status migrainosus, intractable Social History Tobacco Use Types Packs/Day Years [...] on file documented as of this encounter Last Filed Vital Signs Vital Sign Reading Time Taken Comments Blood Pressure 139/93 09/01/2024 8:56 AM MOLD MACHINE OPERATOR Pulse 86 09/01/2024 8:56 AM MOLD MACHINE OPERATOR Temperature 36.7 C (98 F) 09/01/2024 8:56 AM MOLD MACHINE OPERATOR Respiratory Rate 16 09/01/2024 8:56 AM MOLD MACHINE OPERATOR Oxygen Saturation 97% 09/01/2024 8:56 AM MOLD MACHINE OPERATOR Inhaled Oxygen Concentration - - Weight - - Height - - Body Mass Index - - documented in this encounter Progress Notes * Rashaad Davies PA-C - 09/01/2024 9:20 AM CST Subjective: 28-year-old female who presents with a migraine headache. She has a history of migraines and states that this was started about 3 days ago. She has rates it as a 7/10 and it is a throbbing pain and she states that her vision is slightly blurred at times but that is normal for her migraines. She has light and sound sensitivity but no nausea or vomiting. She has had no one-sided weakness or slurring of her speech or facial drooping and no dizziness or lightheadedness. No neck pain or stiffness or chest pain or shortness for breath. She has tried ibuprofen and Nurtec and gets monthlyinjections of Ajovy in the last 1 was 2 days ago. The headache has not improved with these medicatio ns. Her last breakthrough migraine was a few months ago and she required IV fluids along with different medications that she does not remember the name of. She drove herself here today. Complete review of systems is otherwise negative except for noted above. I reviewed notes from when she has been seen in Neurology recently. Past medical history, surgical and social history, allergies medicationsand vital signs were reviewed by myself in [facility]. Objective: Well-developed overweight female in no apparent distress. Skin is warm and dry. Eyes PERRLA, EOMI. Oral mucosa moist and pink. Neck is supple without adenopathy or thyromegaly. Lungs are clear throughout. Heart is regular rate and rhythm. Neurologic exam reveals cranial nerves 2-12 grossly intact. Strength and sensation is intact. Lmrjpr-ff-pjle touching is intact. I informed the patient that at this time we did not have IV fluids because of the nationwide shortage. I told her that she could go to an emergency room for that treatment or we could offer to give her Toradol injection here. She decided that she wanted to try the Toradol to see how it worked. So after 20 minutes she had no change in the headache. Toradol has helped her at sometimes with the headache but other times it has not helped with her headaches. She drove here by herself so we could not give her any other medication that would make her drowsy or under the influence. We talked about going to the emergency room for more aggressive treatment and IV fluids but the patient decided she would rather just go home and sleep and see how she felt when she woke up. She had no adverse reaction from the Toradol. Assessment: Intractable migraine Plan: The patient is going to go home and sleep and if her symptoms are not improved when she wakesup she will go into an emergency room for further evaluation and treatment. If she develops new or worsening symptoms or other problems and she will need to be re-evaluated immediately. I see no evidence of any focal neurologic findings and this does seem consistent with a typical migraine for thispatient. Patient was agreeable to this plan and left in stable condition MACHINE OPERATOR documented in this encounter Nursing Notes * Shi Tyler RN - 09/01/2024 9:20 AM CST Amber Peña is a 28 y.o.female presents to the Urgent Care for HEADACHE,MIGRAINE . Patient presents with 3 days of migraine. Has hx of migraines, last requiring IV fluids and meds. At home has tried advil, nurtec and gets monthly ajovy infections (last was 2 days ago). Pain currently 7/10, sharp/throbbing/pressure. No nausea, but light and noise sensitivity. MACHINE OPERATOR MACHINE OPERATOR * Shi Tyler RN - 09/01/2024 9:20 AM CST Patient reports minimal improvement in pain with IM toradol after 20 minutes. MACHINE OPERATOR documented in this encounter Plan of Treatment Not on file documented as of this encounter Visit Diagnoses Diagnosis Other migraine without status migrainosus, intractable documented in this encounter Administered Medications Inactive Administered Medications - up to 3 most recent administrations Medication Order MAR Action Action Date Dose Rate Site ketorolac (TORADOL) injection 15 mg 15 mg, Intramuscular, ONCE, On Fri09/01/24 at 0930, For 1 doseIndications:Other migraine without status migrainosus, intractable Given 09/01/2024 9:13 AM MOLD MACHINE OPERATOR 15 mg Right Vastus Lateralis (Right Anterior Thigh) documented in this encounter Care Teams Filter Worker Relationship Specialty Start Date End Date Elle Billingsley APRN, PUBLICITY WRITER PCP - General Nurse Practitioner 11/05/18 documented as of this encounter
--- OUTSIDE RECORDS SUMMARY | 2024-09-01 17:48 | XMS_ITS | Encounter Summary ---
Author Organization [facility] Address [address] [place] [address] Care Team Providers Care Grain Trader Name Role Phone Elle Billingsley APRN, FIRE SERVICES PLUMBER Primary Care Provider + Reason for Referral * Therapies (Routine) - New Request Specialty Diagnoses / Procedures Referred By Louise padilla Referred To Contact Diagnoses Gastrocnemius equinus, right Gastrocnemius equinus, left Peroneal tendonitis, right Chaparrita Deng DPM [address] [place] [address] Phone: tel: fax: POS NOT ON FILE Referral ID Status Reason Start Date Expiration Date V isits Requested Visits Authorized [id number] New Request 07/30/2024 07/30/2025 1 1 Scheduling Instructions This order is your clinician's recommendation for a service and is not an insurance referral which authorizes payment. The recommended service and/or location may not be covered by your insurance plan. Please call the number on your insurance card to find out your specific benefits and coverage for the recommended services and/or location. If you need help scheduling the recommended services, please ask your clinician's staff to assist you. Question Answer Appointment Urgency? Non-Urgent Requested Services Evaluate and treat Reason for Visit General Physical Therapy May use saline for irrigation or cleansing Yes dexamethasone use Yes May check glucose per protocol (see policy link below) or if patient has symptoms? Yes Comments GER GIFT * Procedure/Equipment (Routine) - New Request Specialty Diagnoses / Procedures Referred By Louise padilla Referred To Contact Diagnoses Gastrocnemius equinus, right Gastrocnemius equinus, left Peroneal tendonitis, right Chaparrita Deng, ANNMARIE [address] [place] [address] Phone: tel: fax: POS NOT ON FILE Referral ID Status Reason Start Date Expiration Date V isits Requested Visits Authorized [id number] New Request 07/30/2024 01/26/2025 1 1 Scheduling Instructions If scheduling assistance is needed, please inquire with the medical office staff upon exiting your appointment or contact the ordering clinic for recommended locations. This recommended service/s may not be covered by your insurance coverage. To find out your specific benefit coverage, please call the number on your insurance card. [facility] LOCATIONS: [address], [address] - [place] [address] - Toll Free: [phone] - [address], [address] - [place] [address] - Toll Free: [phone] - [address] [address] - Toll Free: [phone] - d [facility]) Wednesdays and Fridays [address] [place] [address] - [facility]) Fridays [address] [place] [address] - [facility] ([facility]) Mondays [address] [place] [address] - [facility] [address] [place] [address] - [facility] - PT DEPARTMENT ([place], [place]) Tuesdays [address] [place] [address] - Phone: [facility] - PT DEPARTMENT ([place], [place]) [address] [place] [address] Professional [facility] [address] [place] [address] - Phone: [facility] - PT DEPARTMENT ([place], [place]) [address] [place] [address] - Phone: [facility] Specialty Clinic Main Floor [address] [place] [place] [address] - Phone: Question Answer Direct patient to which orthotic vendor? [facility] needed? Multi-Density Accomodative Insert B/L Comments GER GIFT Reason for Visit * Reason Comments SECOND OPINION Encounter Details Date Type Department Care Team (Late st Contact Info) Description 07/30/2024 11:20 AM MANAGER GIFT Office Visit Orthopedics at [facility] [address] [place] [place], [place] [phone] Chaparrita Deng DPM [address] [place] [phone] Peroneal tendonitis, right (Primary Dx); Gastrocnemius equinus, right; Gastrocnemius equinus, left Social History Tobacco Use Types Packs/Day Years [...] on file documented as of this encounter Patient Instructions * Patient Instructions* Mavis Lindsey LPN - 07/30/2024 11:20 AM MANAGER GIFT Thank you for choosing [facility] for your health care visit today. Please read the contents below for important information regarding today's appointment. Medication Requests: Prescriptions are not filled on weekends or on weekdays after 3:00 PM. For all medication refills: Request a refill using [employer] or contact your pharmacy. Radiology/MRI Scheduling: To schedule an MRI at [facility] please call [phone]. For [facility] please call [phone]. For [facility] please call [phone]. For [facility] please call [phone]. For [facility] please call [phone]. For [facility] please call [phone] Medical Records/Imaging Requests: For Medical Records please call [phone]. For Images (CD) please call [phone]. [facility] Workers' Compensation [address] [place] [address] (Phone) What is Know Your Cost? Know Your Cost is a service for patients and patient/members to call and receive personalized cost information and estimates across our care group. The phone number is (COST) and is open Friday - Friday from 8 a.m. to [address] Chaparrita Deng, DPM Podiatry [facility] Friday Paperwork Requests/Questions Regarding Surgery Scheduling: All paperwork takes up to 10 business days to complete. Safety Director: Fabi Mcgowan Navigator: Mavis Mora LPN Diagnosis: Diagnosis and Associated Orders ICD-10-CM 1. Peroneal tendonitis, right M76.71 2. Gastrocnemius equinus, right M62.461 3. Gastrocnemius equinus, left M62.462 Plan: Sandy for custom orthotics Stretches (toes to nose) perform in morning before getting out of bed,2-3 times during the day and again right before you go to bed. Hold for 10-15 seconds and at least 5-6 times. Shoes: wear shoes at all times allow the floor to come to your foot r/t tight calf muscles Physical Therapy- minimum of 2 Follow up: 2 months if no improvement in symptoms GER GIFT GER GIFT GER GIFT GER GIFT GER GIFT documented in this encounter Progress Notes * Chaparrita Deng DPM - 07/30/2024 11:20 AM CST Subjective: Amber Peña is a 28 y.o. non-diabetic female who presents for second opinion consultation. Chief complaint: Right heel pain Preferred name: Amber Accompanied by: unaccompanied. 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 None Did you have X-rays taken today? no Amber is a 28 y.o. female here today for a Second opinion on Right heel pain. Pain began November 2023. Primary point of pain is lateral heel/ankle. Pain is worse with weight bearing and impact. Pain isalleviated with ice and rest. Treatments to date so far include ice daily. Stretching exercises prescribed, NSAID's as needed and Voltaren gel. She will start with a heel lift and a night splint. They are here to discuss diagnosis and treatment options moving forward. She could not tolerate night splint and heel lift made no difference. Objective: General Assessment: Patient is alert and fully cooperative with history and exam. No sign of emotional or physical distress is noted during the visit. Musculoskeletal: Patient is ambulatory without any assistive brace her device. Tenderness to palpation along the course of the peroneal tendons in retromalleolar area. No pain with plantar flexion against resistance, some discomfort with the eversion against resistance. No pain with palpation to santino ntar calcaneus, or posteriorly along Achilles tendon or Achilles tendon attachment. No pain at baseof 5th metatarsal. No pain with palpation of ATFL or sinus tarsi. Range of motion of the ankle joint is smooth and within limits. Significant equinus contracture noted which improves slightly with knee flexion. Vascular: DP and PT pulses are intact bilaterally. No significant edema or lower extremity varicosities are noted. Capillary refill and skin temperature is normal in the toes of both lower extremities. Distal extremity perfusion seems adequate. Neurologic: Lower extremity sensation is intact to light touch. I see no evidence of weakness or contracture in the lower extremities. No evidence of peripheral neuropathy or neuropathic pain is appreciated. No hypersensitivity to light touch. Integument: Skin is intact in both lower extremities without significant lesions, rash or abrasion.There is no evidence of paronychia or soft tissue infection. MEDICAL DECISION MAKING Diagnosis: Chronic Right Heel pain Right peroneal tendonitis Equinus, bilaterally Data Review: Review prior external medical records: previous office notes 05/25/2024 Review of prior test results: XR Right Heel Plan: Treatment options for peroneal tendonitis were discussed in detail today. This includes icing, anti-inflammatory medications, lateral heel wedge, taping/strapping, bracing, physical therapy, decreased activity, and avoiding impact activities. Advanced imaging, such as an MRI, may be needed, as the i nternal condition of the tendon is not known. If a partial tear is present, this typically a permanent condition and likely requires surgical repair. We had a discussion on how her equinus can correlate with her peroneus longus tearing. The patient would benefit from custom orthotics. The goal of this method of conservative management would be to help correct the abnormal biomechanics of the footto allow proper functioning. The custom orthotic would support the medial longitudinal arch, which [id number] orthotics would be unable to provide. These orthotics would help control excessive supination/pronation of the subtalar joint. Sandy Referral provided. Also discussed breaking in ort hotics and stressed importance of modifying orthotics if they are not comfortable. A referral to Physical therapy was also given to her with the goal to help decrease her equinus deformity as well ashelp with her peroneal tendon pain. She is also going to ambulate with a shoe will not at all timesand avoid barefoot walking. She is in agreement with this plan, all questions and concerns were addressed. She will return to clinic p.r.n.. Xiao Hernandez DPM Foot and Ankle Surgery, PGY-3 Given all of the above, there is low risk associated with the condition, patient, and treatment options being considered. This document serves as a record of services personally performed by Chaparrita Deng DPM. It was created on her behalf by Mavis Lindsey LPN. The creation of this record is based on the scribe's personal observations and the provider's statements to them. This document has been checked and approved bythe attending provider. I personally saw and evaluated the patient. Discussed with Dr Hernandez and agree with her findings and plan as documented in today's foot and ankle note. Chaparrita Deng DPM 07/30/2024, 1:11 PM GER GIFT GER GIFT documented in this encounter Plan of Treatment Scheduled Referrals Name Type Priority Associated Diagnoses Orde r Schedule [facility] Referral Routine Gastrocnemius equinus, right Gastrocnemius equinus, left Peroneal tendonitis, right Ordered: 07/30/2024 Physical Therapy Referral Routine Gastrocnemius equinus, right Gastrocnemius equinus, left Peroneal tendonitis, right Ordered: 07/30/2024 documented as of this encounter Visit Diagnoses Diagnosis Peroneal tendonitis, right- Primary Gastrocnemius equinus, right Gastrocnemius equinus, left documented in this encounter Care Teams Grain Trader Relationship Specialty Start Date End Date Elle Billingsley, MACHINIST APPRENTICE WOOD, FIRE SERVICES PLUMBER PCP - General Nurse Practitioner 11/05/18 documented as of this encounter
--- OUTSIDE RECORDS SUMMARY | 2024-09-01 17:48 | XMS_ITS | Clinical Summary ---
Author Organization [facility] Address [address] [address] Phone Care Team Providers Care Personal Counselor Name Role Phone Elsewhere, Pcp Primary Care Provider Unavailabl e Allergies Active Allergy Reactions Criticality Noted Date Comments Amoxicillin RASH Medium 05/01/2023 Medications propranolol (Inderal) 40 MG tablet Take 40 mg by mouth two times a day. 12/30/2022 Active DULoxetine (Cymbalta) 60 MG delayed release capsule Take 60 mg by mouth every morning. 02/03/2023 Active drospirenone-eth inyl estradiol (Sheila) 3-0.02 MG oral tablet Take 1 Tablet by mouth every morning. 02/26/2023 Active Active Problems Problem Noted Date Diagnosed Date Tension headache 10/06/2016 Social History Tobacco Use Types Packs/Day Years Used Date Smoking Tobacco: Never Tobacco Cessation:Counseling Given: Not Answered Comments No Sex and Gender Information Value Date Recorded Sex Assigned at Not on file Legal Sex Female 9:35 PM BOTTLE CASER Gender Identity Not on file Sexual Orientation Not on file Obstetrics History Last Filed Vital Signs Vital Sign Reading Time Taken Comments Blood Pressure 124/87 05/01/2023 8:54 AM CDT Pulse 111 05/01/2023 8:54 AM CDT Temperature 36.6 C (97.9 F) 05/01/2023 8:54 AM CDT Respiratory Rate 16 05/01/2023 8:54 AM CDT Oxygen Saturation 97% 05/01/2023 8:54 AM CDT Inhaled Oxygen Concentration - - Weight 126.6 kg (279 lb 1.6 oz) 05/01/2023 8:54 AM CDT Height 177.8 cm (5' 10) 08/12/2016 2:25 PM BOTTLE CASER Body Mass Index 40.05 08/12/2016 2:25 PM BOTTLE CASER Plan of Treatment Health Maintenance Due Date Last Done Comments Cervical Cancer Screening 1997 Last pap w/ HPV Testing 1997 Last pap w/o HPV Testing 1997 HPV Vaccine (Standing Order) (1 - 3-dose series) 2012 Hepatitis B Vaccine (Standin g Order) (1 of 3 - 19+ 3-dose series) 2016 PERTUSSIS (Standing Order) 2016 TETANUS (Standing Order) 2016 COVID-19 Vaccine ( - 2023-2 5 season) 2024 Influenza Vaccine Seasonal (Standing Order) (#1) 2024 Pneumococcal/PCV20 Vaccine: Pediatrics (2-5 yrs) and At-Risk Patients (6-49 yrs) (Standing Order) Aged Out No longer eligible b ased on patient's age to complete this topic Insurance [facility] Care Teams Personal Counselor Relationship Specialty Start Date End Date Elsewhere, Pcp PCP - General 06/18/16
--- OUTSIDE RECORDS SUMMARY | 2024-09-01 17:48 | XMS_ITS | Encounter Summary ---
Author Organization [facility] Address [address] [place] [address] Care Team Providers Care Freight Claim Investigator Name Role Phone Elle Billingsley APRN, CNP Primary Care Provider + Encounter Details Date Type Department Care Team (Late st Contact Info) Description 09/20/2015 Orders Only [facility] [address] [place] [id number] Omari Suarez MD [address] [place] [address] Social History Tobacco Use Types Packs/Day Years Used Date Smoking Tobacco: Never Alcohol Use Standard Drinks/Week Comments Not Asked 0 (1 standard drink = 0.6 oz pur e alcohol) Comments Unknown Sex and Gender Information Value Date Recorded Sex Assigned at Not on file Legal Sex Female 7:06 AM CDT Gender Identity Not on file Sexual Orientation Not on file documented as of this encounter Plan of Treatment Not on file documented as of this encounter Visit Diagnoses Not on filedocumented in this encounter Care Teams Freight Claim Investigator Relationship Specialty Start Date End Date Elle Billingsley APRN, CNP PCP - General Nurse Practitioner 11/05/18 documented as of this encounter
[2024-09-01 17:49] VITALS: BP 132/87; PULSE 85; RESP 16; TEMP 36.8; O2SAT 97; BMI 42.3
--- NOTE | 2024-09-01 18:03 | ED.GENADULT ---
HPI - General Adult General Date Seen: 09/01/24 Chief complaint: Headache/Migraine Stated complaint: 3-day continuous migraine Time Seen by Provider: 09/01/24 17:58 History of Present Illness HPI narrative: 28 yo F with history of migraine headaches presenting to the ER today with concern for a migraine headache that will not go way. She has long history of migraine headaches and actually has a neurologist (in the city of [place], where she recently moved from). She has frequent headaches, several times per month and is on medications for her headaches. She has been taking her meds as prescribed. She has multiple previous headaches and has had previous ER visits to the ER in [place] to be treated for migraines. She has no history of other headache such as meningitis, cerebral aneurysm. She has no recent head trauma. No recent illness or fever. Her current headache began 3 days ago. It is located on the left side of her head and is typical for her usual migraine. It is associated with photophobia, mild blurry vision of the left eye, but no flashing lights. Mild nausea but no vomiting. No focal numbness or weakness. No facial droop. No troubles speaking. No slurred speech. No ataxia. She has no recent head injury. She is not sure what triggered her migraine. She has been using her regular migraine medications as well as ibuprofen but they were not successful. She went to the urgent care this morning and had an intramuscular shot of Toradol, but has not helped yet. She notes that this morning in urgent care they were recommending that they started an IV and give her a migraine cocktail. However, she did not have a septic pump truck driver to give her a ride home so she could not get any medications like Benadryl that might cause sedation. Since her headache is not gone yet, she came here to the ER this evening. She has her friend, from work, who can be her safe ride home. Related Data Home Medications ?Medication ?Instructions ?Recorded ?Confirmed albuterol sulfate 90 mcg/actuation 1 - 2 puff inhalation Q4H PRN 06/16/23 09/01/24 aerosol inhaler (Ventolin HFA) dyspnea rimegepant 75 mg disintegrating 75 mg PO PRN 06/16/23 06/16/23 tablet (Nurtec ODT) fremanezumab-vfrm 225 mg/1.5 mL mg subcut 09/01/24 subcutaneous auto-injector (Ajovy) Allergies Allergy/AdvReac Type Severity Reaction Status Date / Time amoxicillin Allergy Mild Rash Verified 12/16/23 23:36 [facility] Medical History (Updated 09/01/24 @ 19:25 by Dakota Hernandez MD) Migraine headache ?G43.909 - Migraine, unspecified, not intractable, without status migrainosus (ICD-10) DVT (deep vein thrombosis) in ?O22.30 - Deep phlebothrombosis in , unspecified trimester (ICD-10) Social History (System 07/08/23 @ 13:46 by En Cyr) Smoking Status: Never smoker Do you use any of these nicotine containing products: None Second hand tobacco smoke exposure: Yes How often do you have a drink containing alcohol: monthly or less How many standard drinks containing alcohol do you have on a typical day: 3 or 4 How often do you have six or more drinks on one occasion: Less than monthly AUDIT-C Alcohol total score: 3 Non-prescribed substance use: denies use service: No Exam Narrative: Exam Narrative: Constitutional: Appears well-developed and well-nourished. Alert. Conversant. Non toxic. HENT: Head: Atraumatic. No depressed skull fracture, Raccoon Eyes, Mazariegos's sign, or hemotympanum. Face normal. TMs normal Nose: Nose normal. Mouth/Throat: Oral mucosa is clear and moist. no trismus. Pharynx normal. Tonsils symmetric. No tonsillar enlargement, erythema, or exudate. Eyes: Conjunctivae normal. EOM normal. Pupils equal, round, and reactive to light. No scleral icterus. Neck: Normal range of motion. Neck supple. No tracheal deviation present. Normal range of motion. No stiffness Cardiovascular: Normal rate, regular rhythm. No gallop. No friction rub. No murmur heard. Symmetric radial artery pulses Pulmonary/Chest: Effort normal. No stridor. No respiratory distress. No wheezes. No rales. No rhonchi Abdominal: Soft. No distension. No mass. No tenderness. No rebound. No guarding. Musculoskeletal: RUE: Normal range of motion. No tenderness. No deformity LUE: Normal range of motion. No tenderness. No deformity RLE: Normal range of motion. No edema. No tenderness. No deformity LLE: Normal range of motion. No edema. No tenderness. No deformity Lymph: No cervical adenopathy. Neurological: Mental status normal. Attention normal. Alert and oriented x3. GCS 15. Memory normal. Speech fluent. Cognition normal. Cranial Nerves intact II-XII except I did not formally test gag or visual acuity. EOMI. Palate elevates symmetrically and tongue protrudes in the midline. Strength: 5/5 trapezius on the right and left 5/5 deltoid on the right and left 5/5 biceps on the right and left 5/5 triceps on the right and left 5/5 cloth shrinker on the right and left 5/5 thumb opposition on the right and left 5/5 finger abduction on the right and left 5/5 hip flexors (L3) on the right and left 5/5 quadriceps (L4) on the right and left 5/5 tibialis anterior on the right and left 5/5 EHL (L5) on the right and left 5/5 gastrocnemius (S1) on the right and left 5/5 hamstring on the right and left Sensation intact to light touch in both upper extremities (C4-T1) Sensation intact to light touch in Both lower extremities (L4-S1). Finger to nose and coordination normal. Gait normal. Skin: Skin is warm and dry. No rash noted. No pallor. Normal capillary refill. Psychiatric: Normal mood. Normal affect. Const: Vital Signs, click to edit/add: Vital Signs - 24 hr 09/01/24 17:49 09/01/24 19:10 Temperature 98.3 F 98.0 F Pulse Rate [Pulse Oximeter] 85 63 Respiratory Rate 16 16 Blood Pressure [[facility] Upper [facility]] 132/87 119/80 Pulse Oximetry 97 98 Oxygen Delivery Me thod Room Air Room Air Course Course ED Course: Recheck-headache improving and almost resolved. She is feeling better and feels like if she can go home and rest she will be able to further improved. Vital Signs Vital signs: Initial Vital Signs Temperature 98.3 F 09/01/24 17:49 Temperature Source Temporal Artery Scan 09/01/24 17:49 Pulse Rate 85 09/01/24 17:49 Respiratory Rate 16 09/01/24 17:49 Blood Pressure 132/87 09/01/24 17:49 Blood Pressure Mean 102 09/01/24 17:49 Blood Pressure Position Sitting 09/01/24 17:49 Pulse Oximetry 97 09/01/24 17:49 Oxygen Delivery Method Room Air 09/01/24 17:49 Vital Signs Temperature 98.3 F 09/01/24 17:49 Pulse Rate 85 09/01/24 17:49 Respiratory Rate 16 09/01/24 17:49 Blood Pressure 132/87 09/01/24 17:49 Pulse Oximetry 97 09/01/24 17:49 Oxygen Delivery Method Room Air 09/01/24 17:49 Temperature 98.0 F 09/01/24 19:10 Pulse Rate 63 09/01/24 19:10 Respiratory Rate 16 09/01/24 19:10 Blood Pressure 119/80 09/01/24 19:10 Pulse Oximetry 98 09/01/24 19:10 Oxygen Delivery Method Room Air 09/01/24 19:10 Medications Administered Medications: Discontinued Medications Generic Name Dose Route Start Last Admin Trade Name Freq PRN Reason Stop Dose Admin Diphenhydramine HCl 12.5 mg 09/01/24 18:07 09/01/24 18:27 Diphenhydramine 50 Mg/Ml Inj IVP 09/01/24 18:08 12.5 mg ONCE ONE Administration Sodium Chloride 1,000 mls @ 1,000 mls/hr 09/01/24 18:15 09/01/24 19:12 0.9 % Sodium Chloride 1000 Ml IV 09/01/24 19:14 Infused .Q1H DIANELYS Infusion Ketorolac Tromethamine 15 mg 09/01/24 18:07 09/01/24 18:27 Ketorolac 15 Mg/Ml Inj IVP 09/01/24 18:08 15 mg ONCE ONE Administration Metoclopramide HCl 10 mg 09/01/24 18:07 09/01/24 18:27 Metoclopramide Hcl 5 Mg/Ml Inj IVP 09/01/24 18:08 10 mg ONCE ONE Administration Medical Decision Making MDM Narrative Medical decision making narrative: Ths patient presents with a headache. A broad differential diagnosis was considered including tension, migraine, analgesic rebound, occipital neuralgia, etc. Other less common but serious causes considered included meningitis, encephalitis, subarachnoid bleed, stroke, tumor, etc. headache is similar in location, onset, and character to her previous migraines. Foot brought her to the ER was that this headache was not resolved with her typical migraine meds. She has headaches like this a couple of times per year. Fortunately, we were able to get her some significant relief with medications given here in the ER. The patient has no signs of serious headache etiologies at this point. No advanced imaging is indicated, nor is CT/lumbar puncture for SAH. Patient's questions were answered and they feel improved after above interventions in ED. Supportive outpatient management is therefore indicated. Headache precautions given for home. Discharge Plan Discharge Clinical Impression: Headache Patient Disposition: Home, Self-Care Condition: Stable Instructions: Acute Headache (DC) Additional Instructions: As we discussed, the medications we gave you here in the ER will make you drowsy for 6 [address] not drive a car or operate dangerous machinery. Monitor your symptoms carefully and if you have worsening headache, new concerning symptoms such as worsening vision, droopy face, slurred speech, numbness or weakness in your arms or legs, neck pain, fever, uncontrolled vomiting, please come back to the ER right away to be rechecked. Please recheck with your regular doctor next week. Prescriptions: No Action albuterol sulfate [Ventolin HFA] 90 mcg/actuation HFA aerosol inhaler 1 - 2 puff inhalation Q4H PRN (Reason: dyspnea) Nurtec ODT 75 mg tablet,disintegrating 75 mg PO PRN Ajovy Autoinjector 225 mg/1.5 mL auto-injector SUBCUT Patient Comments: [NO ORIGINAL SIG] Follow Up/Referrals: Brandi Pond PA-C [Primary Care Provider] - Stand Alone Forms: [facility] Info Instructions
[2024-09-01] MEDS: 0.9 % SODIUM CHLORIDE 1000 ml 1,000 ML IV (18:23)
[2024-09-01] MEDS: METOCLOPRAMIDE HCL 5 MG/ML INJ 10 MG IVP (18:27)
[2024-09-01] MEDS: diphenhydrAMINE 50 MG/ML inj 12.5 MG IVP (18:27)
[2024-09-01] MEDS: KETOROLAC 15 MG/ML inj IVP (18:27)
[2024-09-01 18:50] VITALS: O2SAT 98
--- OUTSIDE RECORDS SUMMARY | 2024-09-01 18:58 | XMS_ITS | Clinical Summary ---
Author Organization [facility] Address [address] [place] [address] Care Team Providers Care Material Analyst Name Role Phone Eva Pond Primary Care Provider [phone] Allergies Active Allergy Reactions Criticality Noted Date [...] heel PLANTAR FASCIITIS NIGHT SPLINT, MEDIUM, REF: [id number] 1 Each 05/25/20 24 Active albuterol HFA [...] Department Care Team Description 08/17/2024 8:30 AM TRUCK DRIVER SUPERVISOR Office Visit [facility] [address] [place] [address] Eva Randall PA Post-op (Right carpal tunnel release) 08/17/2024 Travel 07/28/2024 11:58 AM TRUCK DRIVER SUPERVISOR - 07/28/2024 11:59 PM TRUCK DRIVER SUPERVISOR Hospital Encounter James Barksdale MD 07/28/2024 Orders Only [facility] [address] [facility] [address] [place] [address] James Barksdale MD <No scans attached> 07/28/2024 Surgery [facility] [address] [facility] [address] [place] [address] James Barksdale MD CPT 16465 - CARPAL TUNNEL RELEASE - RT WRIST EVA WILL BE THERE NO REP POST OP APPTS MADE 07/28/2024 Orders Only [facility] [address] [place] [address] Eva Randall PA <No scans attached> 07/22/2024 3:30 PM TRUCK DRIVER SUPERVISOR Office Visit [facility] [address] [place] [address] Dakota Munoz MD Preoperative Exam (07/28/24 /Rt Carpal Tunnel/Dr. Barksdale/[facility] [place] /) 07/22/2024 Travel 07/13/2024 2:15 PM TRUCK DRIVER SUPERVISOR Office Visit [facility] [address] [place] [address] James Barksdale MD Consult (right hand) 07/13/2024 2:10 PM TRUCK DRIVER SUPERVISOR Ancillary Procedure [facility] [address] [place] [address] 07/13/2024 Travel 07/08/2024 Travel 06/25/2024 9:30 AM TRUCK DRIVER SUPERVISOR Telemedicine [facility] [address] [place] [address] Shane Oconnell NP Influenza Like Illness (cough, runny nose, sinus pressure x 2 days) 06/25/2024 Travel 06/09/2024 8:06 AM TRUCK DRIVER SUPERVISOR - 06/09/2024 11:59 PM TRUCK DRIVER SUPERVISOR Hospital Encounter [facility] EMG/EEG/EP [address] [facility] [address] [place] [address] Lionel Chamberlain MD Beck, Elizabeth Haule, MD [...] Comments Blood Pressure 126/84 07/22/2024 3:33 PM TRUCK DRIVER SUPERVISOR Pulse 84 07/22/2024 3:33 PM TRUCK DRIVER SUPERVISOR Temperature 36.2 C (97.1 F) 07/22/2024 3:33 PM TRUCK DRIVER SUPERVISOR Respiratory Rate 14 07/22/2024 3:33 PM TRUCK DRIVER SUPERVISOR Oxygen Saturation 98% 07/22/2024 3:33 PM TRUCK DRIVER SUPERVISOR Inhaled Oxygen Concentration - - Weight 135.2 kg (298 lb 1.6 oz) 07/22/2024 3:33 PM TRUCK DRIVER SUPERVISOR Height 180.2 cm (5' 10.95) 07/22/2024 3:[address] Body Mass Index 41.64 07/22/2024 3:33 PM TRUCK DRIVER SUPERVISOR Plan of Treatment Upcoming Encounters Date Type Department Care Team (Late st Contact Info) Description 09/28/2024 8:00 AM CDT Office Visit [facility] [address] [place] [address] Eva Randall PA [address] [place] [address] 11/22/2024 8:00 AM CDT Office Visit [facility] [address] [facility] [address] [place] [address] James Barksdale MD [address] [place] [address] Health Maintenance Due Date Last Done Comments [...] 3 VIEWS RIGHT Routine 07/13/2024 2:10 PM TRUCK DRIVER SUPERVISOR Right hand pain EMG Routine 06/09/2024 Chronic pain of right thumb Paresthesias in right hand DIGESTER OPERATOR HELPER THIN PREP PAP SCREEN IMAGED Routine 01/07/2024 7:20 AM CDT Screening for malignant neoplasm of cervix SURGICAL PROCEDURE (TYPE PROCEDURE DESCRIPTION BELOW) Elective Carpal tunnel syndrome of right wrist Right hand pain from Last 3 Months or Most Recently Relevant to Health Maintenance Results * XR HAND 3 VIEWS RIGHT (07/13/2024 2:10 PM TRUCK DRIVER SUPERVISOR) Anatomical Region Laterality Modality HANDS, HAND R Computed Radiogr aphy 07/15/2024 6:35 AM TRUCK DRIVER SUPERVISOR Narrative 07/15/2024 6:35 AM TRUCK DRIVER SUPERVISOR For Patients: As a result of the [...] MD NEUROLOGY ORD Final Res ult * DIGESTER OPERATOR HELPER THIN PREP PAP SCREEN IMAGED [[id number]] (01/07/2024 7:20 AM CDT) Case Report Gynecologic Cytology Report Case: [id number] Authorizing Provider: Eva Pond PA Collected: 01/07/2024 0720 Ordering Location: [facility] Received: 01/07/2024 0748 Clinic First Screen: Brian Rodrigues Specimen: DIGESTER OPERATOR HELPER ThinPrep Vial Screening, Cervical 01/14/2024 1:58 PM CDT [facility] INTERPRETATION/ RESULT NEGATIVE FOR INTRAEPITHELIAL LESION OR MALIGNANCY (NIL) (none) 01/14/2024 1:58 PM CDT [facility] IMEN ADEQUACY Satisfactory for evaluation No endocervical component seen 01/14/2024 1:58 PM CDT [facility] HPV REQUEST HPV not requested 2023 1:58 PM CDT [facility] Date of LMP 12/13/23 01/14/2024 1:58 PM CDT [facility] Last Pap Date 08/01/20 01/14/2024 1:58 PM CDT [facility] Last Pap Result NIL 1:58 PM CDT [facility] Abnormal Pap or [place] Bx in last 5 years No 01/14/2024 1:58 PM CDT [facility] Menstrual Status Irregular Periods 01/14/2024 1:58 PM CDT [facility] [place] Bx Done Today No 01/14/2024 1:58 PM CDT [facility] Additional Information None given 01/14/2024 1:58 PM CDT [facility] Comment: Cytology is screened at [facility] - [address] [address] and [facility] - [address] [place] [address] and [facility] - [address] [place] [address] Interpreted at [facility] Laboratory - [address], [place] [address] Automated Review Successful 01/14/2024 1:58 PM CDT [facility] Comment:Specimen processed s uccessfully by automated radio tester device, ThinPrep Imaging System, [employer] Note The pap test is a [...] and malignant lesions. 01/14/2024 1:58 PM CDT [facility] Other (Cervical) Non-Blood / Unknown 01/07/2024 7:20 AM CDT 01/07/2024 7:48 AM CDT Eva TOLENTINO PATHOLOGY/CYTOLOGY Final Result [facility] LABORATORY-CENTRAL LABORATORY [address] [place] [address], [place] from Last 3 Months or Most Recently Relevant to Health Maintenance Insurance [facility] [employer] Care Teams Material Analyst Relationship Specialty Start Date End Date Eva Pond PA [address] [place] [address] PCP - General Physician Milker Machine 09/08/23
--- OUTSIDE RECORDS SUMMARY | 2024-09-01 18:58 | XMS_ITS | Clinical Summary ---
Author Organization [facility] Address [address] [place] [address] Care Team Providers Care Microsoft Infrastructure Consultant Name Role Phone Elle Billingsley APRN, VIET Primary Care Provider + Source Comments You are receiving this document as you are listed as the primary care provider,follow-up provider, or the patient has been referred to you for consultation.This is in compliance with the Medicare and[facility] Cent[facility] EHR Incentive Program,which states Providers who transition their patient to another setting of careor provider of care or refers their patient to another provider of care shouldprovide summary care record for each transition of care or referral. [facility] Allergies Active Allergy Reactions Criticality Noted Date [...] sore throat 10/17/2005 Overview (03/05/2017): LW Onset: [id number] ; Pharyngitis Streptococcal Encounters Date Type Department Care Team Description 09/01/2024 9:20 AM SCIENTIFIC PROGRAMMER Office Visit [place] [address] [facility] [address] [place] [address] Rashaad Davies PAMargaritoC Other migraine without status migrainosus, intractable 07/30/2024 11:20 AM SCIENTIFIC PROGRAMMER Office Visit Orthopedics at [facility] Orthopedic [facility] [address] [place] [address] Chaparrita Deng DPM Peroneal tendonitis, right (Primary Dx); Gastrocnemius equinus, right; Gastrocnemius equinus, left 07/26/2024 Telephone Orthopedics at [facility] [address] [place] [address] Chaparrita Deng DPM Future Appointments 07/08/2024 6:50 PM SCIENTIFIC PROGRAMMER Ancillary Procedure [facility] [address] [place] [phone] Hanna Parekh MD Acute cough 07/08/2024 5:20 PM SCIENTIFIC PROGRAMMER Office Visit [place] [address] [facility] [address] [place] [phone] Hanna Parekh MD Acute cough; Mild intermittent [...] IPV (Polio) 12/20/2002,03/29/1998,1997 Influenza IIV4 (Quadrivalent) 0.5mL ([id number]) 07/2018,04/12/2014,03/30/2013 MCV4 (Menactra) 03/14/2009 MMR 12/20/2002,01/05/1999 OPV, [...] Comments Blood Pressure 139/93 09/01/2024 8:56 AM SCIENTIFIC PROGRAMMER Pulse 86 09/01/2024 8:56 AM SCIENTIFIC PROGRAMMER Temperature 36.7 C (98 F) 09/01/2024 8:56 AM SCIENTIFIC PROGRAMMER Respiratory Rate 16 09/01/2024 8:56 AM SCIENTIFIC PROGRAMMER Oxygen Saturation 97% 09/01/2024 8:56 AM SCIENTIFIC PROGRAMMER Inhaled Oxygen Concentration - - Weight 117.8 kg (259 lb 9.6 oz) 09/15/2019 4:05 PM SCIENTIFIC PROGRAMMER Height 177.8 cm (5' 10) 09/15/2019 4:05 PM SCIENTIFIC PROGRAMMER Body Mass Index 37.25 09/15/2019 4:05 PM SCIENTIFIC PROGRAMMER Plan of Treatment Health Maintenance Due Date [...] CHEST 2 VIEWS STAT 07/08/2024 6:54 PM SCIENTIFIC PROGRAMMER Acute cough CHLAMYDIA & GC (14 YEARS & OLDER) Routine 12/21/2018 8:38 AM CDT Screening for STD (sexually transmitted disease) PAP TEST Routine 12/21/2018 8:38 AM CDT Screening for cervical cancer from Last 3 Months or Most Recently Relevant to Health Maintenance Results * XR Chest 2 Views (07/08/2024 6:54 PM SCIENTIFIC PROGRAMMER) Anatomical Region Laterality Modality Chest, Lung Digital Radiogra phy 07/08/2024 6:49 PM SCIENTIFIC PROGRAMMER Narrative 07/08/2024 6:57 PM SCIENTIFIC PROGRAMMER COMPARISON: None. FINDINGS: Mild asymmetric elevation of [...] 8:38 AM CDT) Case Report Pap Case: [id number] Authorizing Provider: Elle Billingsley APRN, CNP Collected: 12/21/2018 08:38 AM Ordering Location: [facility] Received: 12/21/2018 09:02 AM First Screen: Kary Salinas Pathologist: Karlene Quiros MD Specimen: Pap Test, Routine, Cervix/Endocervix 12/28/2018 4:55 PM [facility] Pap Specimen Adequacy Satisfactory for evaluation, endocervical/palmer sformation zone component present. 12/28/2018 4:55 PM [facility] Pap Interpretation Low-grade squamous intraepithelial lesion (LSIL), encompassing HPV/mild dysplasia/JESE 1.(A) 12/28/2018 4:55 PM [facility] Gross Description The specimen is received in SurePath fixative and properly labeled. 1 Pap-stained SurePath slide is prepared. 12/28/2018 4:55 PM [facility] Pap Disclaimer The Pap test is a screening test designed to aid in the detection of cervical cancer and its precursor lesions. It is not a diagnostic procedure and should not be used as the sole means of detecting cervical cancer. Both false-positive and false-negative reports may occur. 12/28/2018 4:55 PM [facility] Embedded Images 9 4:55 PM [facility] Other Specimen Type ENTIRE ENDOCERVIX / Unknown 12/21/2018 8:38 AM CDT 12/21/2018 9:02 AM CDT Comment:LMP: Patient's last menstrual period was 11/26/2018 (approximate). us Elle Billingsley APRN, CNP LAB PATHOLOGY Final Re sult [address] [phone] * Chlamydia & GC (14 Years and Older) (12/21/2018 8:38 AM CDT) Chlamydia Trachomatis STD Not Detected Not Detected 12/21/2018 5:20 PM CDT [facility] N. gonorrhoeae STD Not Detected Not Detected 12/21/2018 5:20 PM CDT [facility] Swab (Source Required) ENTIRE ENDOCERVIX / Unknown Non-blood Collection / Unknown 12/21/2018 8:38 AM CDT 12/21/2018 9:01 AM CDT Narrative [facility] - 12/21/2018 5:20 PM CDT Test performed by Molecular Detection us Elle Billingsley PRODUCT AMBASSADOR, TELEPHONE STERILIZER LAB_1 Final Re sult [facility] [id number] [place] [address] from Last 3 Months or Most Recently Relevant to Health Maintenance Insurance [employer] [employer] [place] [address] [facility] NONPROFIT INSURANCE TRUST [id number] Advance Directives * Full Code (Latest Code Status on File) Date Activated Date Inactivated Comments 01/11/2019 4:06 PM 01/11/2019 7:48 PM * No Code Status Date Activated Date Inactivated Comments 07/03/2004 5:24 PM 07/03/2004 6:24 PM Care Teams [employer] Infrastructure Consultant Relationship Specialty Start Date End Date Elle Billingsley APRN, TELEPHONE STERILIZER PCP - General Nurse Practitioner 11/05/18
--- OUTSIDE RECORDS SUMMARY | 2024-09-01 18:58 | XMS_ITS | Clinical Summary ---
Author Organization [facility] Address [address] [address] Phone Care Team Providers Care Stamp Collector Name Role Phone Elsewhere, Pcp Primary Care [...] on file Legal Sex Female 9:35 PM DENTAL TECHNICIAN Gender Identity Not on file Sexual Orientation [...] 177.8 cm (5' 10) 08/12/2016 2:25 PM DENTAL TECHNICIAN Body Mass Index 40.05 08/12/2016 2:25 PM DENTAL TECHNICIAN Plan of Treatment Health Maintenance Due Date [...] age to complete this topic Insurance [employer] Care Teams Stamp Collector Relationship Specialty Start Date End Date Elsewhere, Pcp PCP - General 06/18/16
--- OUTSIDE RECORDS SUMMARY | 2024-09-01 18:58 | XMS_ITS | Encounter Summary ---
Author Organization [facility] Address [address] [place] [address] Care Team Providers Care Residential Sales Manager Name Role Phone Elle Billingsley APRN, TELEMETRY NURSE Primary Care Provider + Reason for Visit * Reason Comments HEADACHE,MIGRAINE Encounter Details Date Type Department Care Team (Late st Contact Info) Description 09/01/2024 9:20 AM CRNA Office Visit [facility] [address] [place] [phone] Rashaad Davies, PA-C [address] [facility] [address] [place] [id number] Other migraine without status migrainosus, intractable Social [...] Comments Blood Pressure 139/93 09/01/2024 8:56 AM CRNA Pulse 86 09/01/2024 8:56 AM CRNA Temperature 36.7 C (98 F) 09/01/2024 8:56 AM CRNA Respiratory Rate 16 09/01/2024 8:56 AM CRNA Oxygen Saturation 97% 09/01/2024 8:56 AM CRNA Inhaled Oxygen Concentration - - Weight - [...] vital signs were reviewed by myself in [facility]. Objective: Well-developed overweight female in no apparent distress. Skin is warm and dry. Eyes PERRLA, EOMI. Oral mucosa moist and pink. Neck is supple without adenopathy or thyromegaly. Lungs are clear throughout. Heart is regular rate and rhythm. Neurologic exam reveals cranial nerves 2-12 grossly intact. Strength and sensation is intact. Opacau-pi-ycvf touching is intact. I informed the patient [...] this plan and left in stable condition documented in this encounter Nursing Notes * [...] No nausea, but light and noise sensitivity. * Shi Tyler RN - 09/01/2024 9:20 AM CST Patient reports minimal improvement in pain with IM toradol after 20 minutes. documented in this encounter Plan of Treatment [...] status migrainosus, intractable Given 09/01/2024 9:13 AM CRNA 15 mg Right Vastus Lateralis (Right Anterior Thigh) documented in this encounter Care Teams Residential Sales Manager Relationship Specialty Start Date End Date Elle Billingsley APRN, TELEMETRY NURSE PCP - General Nurse Practitioner 11/05/18 documented as of this encounter
--- OUTSIDE RECORDS SUMMARY | 2024-09-01 18:58 | XMS_ITS | Encounter Summary ---
Author Organization [facility] Address [address] [place] [address] Care Team Providers Care Medical Technicians Name Role Phone Elle Billingsley APRN, TRANSPORTATION SERVICES REPRESENTATIVE Primary Care Provider + Reason for Visit * Reason Comments Future Appointments Encounter Details Date Type Department Care Team (Late st Contact Info) Description 07/26/2024 Telephone Orthopedics at [facility] Orthopedic [address] [phone] Chaparrita Deng DPM [address] [place] [address] Future Appointments Social History Tobacco Use [...] diagnosis and saw a non op at [facility] Future Appointments Date Time Provider Department Center 07/30/2024 11:20 AM Chaparrita Deng DPM [facility] CHECKER * Mavis Lindsey LPN - 07/26/2024 1:43 PM CST Message left to confirm with patient about upcoming appt with Dr. Deng. Please specify if the appointment is a Second Opinion for Right heel or if it is for Right ankle pain. Mavis Lindsey LPN 07/26/2024, 1:44 PM CHECKER documented in this encounter Plan of Treatment Not on file documented as of this encounter Visit Diagnoses Not on filedocumented in this encounter Care Teams Medical Technicians Relationship Specialty Start Date End Date Elle Billingsley APRN, VIET PCP - General Nurse Practitioner 11/05/18 documented as of this encounter
--- OUTSIDE RECORDS SUMMARY | 2024-09-01 18:58 | XMS_ITS | Encounter Summary ---
Author Organization [facility] Address [address] [place] [address] Care Team Providers Care Machine Steak Tenderizer Name Role Phone Elle Billingsley APRN, CNP Primary Care Provider + Encounter Details Date Type Department Care Team (Late st Contact Info) Description 09/20/2015 Orders Only [facility] [address] [place] [address] Omari Suarez MD [address] [place] [address] Social History Tobacco Use Types Packs/Day Years [...] on filedocumented in this encounter Care Teams Machine Steak Tenderizer Relationship Specialty Start Date End Date Elle Billingsley APRN, CNP PCP - General Nurse Practitioner 11/05/18 documented as of this encounter
--- OUTSIDE RECORDS SUMMARY | 2024-09-01 18:58 | XMS_ITS | Encounter Summary ---
Author Organization [facility] Address [address] [place] [address] Care Team Providers Care Commercial Real Estate Assistant Name Role Phone Elle Billingsley APRN, FINANCIAL ADVOCATE Primary Care Provider + Reason for Referral * Therapies (Routine) - New Request Specialty Diagnoses / Procedures Referred By Louise padilla Referred To Contact Diagnoses Gastrocnemius equinus, right Gastrocnemius equinus, left Peroneal tendonitis, right Chaparrita Deng DPM [address] [place] [address] Phone: tel: fax: POS NOT ON FILE Referral ID Status Reason Start Date Expiration Date V isits Requested Visits Authorized [id number] New Request 07/30/2024 07/30/2025 1 1 Scheduling [...] if patient has symptoms? Yes Comments GER PIPELINE * Procedure/Equipment (Routine) - New Request Specialty Diagnoses / Procedures Referred By Louise padilla Referred To Contact Diagnoses Gastrocnemius equinus, right Gastrocnemius equinus, left Peroneal tendonitis, right Chaparrita Deng, ANNMARIE [address] [place] [address] Phone: tel: fax: POS NOT ON FILE Referral ID Status Reason Start Date Expiration Date V isits Requested Visits Authorized [id number] New Request 07/30/2024 01/26/2025 1 1 Scheduling Instructions If scheduling assistance is needed, please inquire with the medical office staff upon exiting your appointment or contact the ordering clinic for recommended locations. This recommended service/s may not be covered by your insurance coverage. To find out your specific benefit coverage, please call the number on your insurance card. [facility] LOCATIONS: [address], [address] - [place] [address] - Toll Free: [phone] - [address], [address] - [place] [address] - Toll Free: [phone] - [address] [address] - Toll Free: [phone] - d [facility] ([facility]) Wednesdays and Fridays [address] [place] [address] - [facility]) Fridays [address] [place] [address] - [facility] ([facility]) Mondays [address] [place] [address] - [facility] [address] [place] [address] - [facility] - PT DEPARTMENT ([place], [place]) Tuesdays [address] [place] [address] - Phone: [facility] - PT DEPARTMENT ([place], [place]) [address] [place] [address] [facility] [address] [place] [address] - Phone: [facility] - PT DEPARTMENT ([place], [place]) [address] [place] [address] - Phone: [facility] Specialty Clinic Main Floor [address] [place] [address] - Phone: Question Answer Direct patient to which orthotic vendor? [facility] needed? Multi-Density Accomodative Insert B/L Comments GER PIPELINE Reason for Visit * Reason Comments SECOND OPINION Encounter Details Date Type Department Care Team (Late st Contact Info) Description 07/30/2024 11:20 AM MANAGER PIPELINE Office Visit Orthopedics at [facility] Orthopedic [facility] [place] [address] [address] [place], [place] [phone] Chaparrita Deng DPM [address] [place] [phone] Peroneal tendonitis, right (Primary Dx); Gastrocnemius equinus, [...] Lindsey LPN - 07/30/2024 11:20 AM MANAGER PIPELINE Thank you for choosing [facility] for your health care visit today. Please read the contents below for important information regarding today's appointment. Medication Requests: Prescriptions are not filled on weekends or on weekdays after 3:00 PM. For all medication refills: Request a refill using [employer] or contact your pharmacy. Radiology/MRI Scheduling: To schedule an MRI at [facility] please call [phone]. For [facility] please call [phone]. For [facility] please call [phone]. For [facility] please call [phone]. For [facility] please call [phone]. For [facility] please call [phone] Medical Records/Imaging Requests: For Medical Records please call [phone]. For Images (CD) please call [phone]. [facility] Workers' Compensation [address] [place] [address] (Phone) What is Know Your Cost? Know Your Cost is a service for patients and patient/members to call and receive personalized cost information and estimates across our care group. The phone number is (COST) and is open Friday - Friday from 8 a.m[address] to [address] Chaparrita Deng, DPM Podiatry [facility] Friday Paperwork Requests/Questions Regarding Surgery Scheduling: All paperwork takes up to 10 business days to complete. C.O.D. Clerk: Fabi Mcgowan Navigator: Maivs Mora LPN Diagnosis: Diagnosis and Associated Orders [...] months if no improvement in symptoms GER PIPELINE GER PIPELINE GER PIPELINE GER PIPELINE GER PIPELINE documented in this encounter Progress Notes * [...] 2, Least: 2, Worst: 8 Employment status: manager maritime Occupation: Behavior therapist Daily activities: walking Tobacco [...] would support the medial longitudinal arch, which [id number] orthotics would be unable to provide. These [...] Chaparrita Deng DPM 07/30/2024, 1:11 PM GER PIPELINE GER PIPELINE documented in this encounter Plan of Treatment [...] left documented in this encounter Care Teams Commercial Real Estate Assistant Relationship Specialty Start Date End Date Elle Billingsley, PANELBEATER, FINANCIAL ADVOCATE PCP - General Nurse Practitioner 11/05/18 documented as of this encounter
--- OUTSIDE RECORDS SUMMARY | 2024-09-01 18:58 | XMS_ITS | Clinical Summary ---
Author Organization [facility] Address [address] [place] [address] Care Team Providers Care Daycare Assistant Name Role Phone Brandi Pond Primary Care Provider [phone] Allergies Active Allergy Reactions Criticality Noted Date [...] topic Insurance [employer] Care Teams Daycare Assistant Relationship Specialty Start Date End Date Brandi Pond PA [address] [place] [address] PCP - General Family Practice 03/03/24
[2024-09-01 19:10] VITALS: BP 119/80; PULSE 63; RESP 16; TEMP 36.7; O2SAT 98
== END 2024-09-01 19:37 | disposition home or self-care (01) ==
PROVIDERS: Emergency Provider Emergency Medicine; PCP Student in an Organized Health Care Education/Training Program
DX: R51.9 Headache, unspecified (principal)
CPT/HCPCS: 94761; 96374; 96375; 99283; 99284; J1200; J1885; J2765; J7030

== ENCOUNTER 2025-02-09 12:44 | Emergency (ER) | payer MEDICAID, SELFPAY ==
--- OUTSIDE RECORDS SUMMARY | 2025-01-11 13:48 | XMS_ITS | Encounter Summary ---
Author Organization [facility] Address [address] [place] [address] Care Team Providers Care Fertilizer Mixer Name Role Phone Brandi Pond Primary Care Provider [phone] Reason for Visit * Reason Comments Abdominal Pain Encounter Details Date Type Department Care Team (Late st Contact Info) Description 01/11/2025 1:48 PM CDT - 01/11/2025 3:48 PM CDT Emergency [facility] [address] [place] [id number] Judie Diez MD [facility] [address] [place], [place] [id number] Diarrhea, unspecified type; Lower abdominal pain; Colitis Discharge Disposition: Home or Self Care Social History Tobacco Use Types Packs/Day Years Used Date Smoking Tobacco: Never Smokeless Tobacco: Never Comments No Sex and Gender Information Value Date Recorded Sex Assigned at Not on file Legal Sex Female 5:07 PM CDT Gender Identity Not on file Sexual Orientation Not on file documented as of this encounter Last Filed Vital Signs Vital Sign Reading Time Taken Comments Blood Pressure 145/111 01/11/2025 1:24 PM CDT Pulse 81 01/11/2025 1:24 PM CDT Temperature 36.5 C (97.7 F) 01/11/2025 1:24 PM CDT Respiratory Rate 16 01/11/2025 1:24 PM CDT Oxygen Saturation 99% 01/11/2025 1:24 PM CDT Inhaled Oxygen Concentration - - Weight 134.7 kg (296 lb 15.4 oz) 01/11/2025 1:24 PM CDT Height 177.8 cm (5' 10) 01/11/2025 1:24 PM CDT Body Mass Index 42.61 01/11/2025 1:24 PM CDT documented in this encounter Discharge Instructions * Discharge Instructions* Judie Diez MD - 01/11/2025 3:24 PM CDT I suspect that your symptoms are caused by a virus resulting in colitis which is inflammation of your colon. This should resolve on its own, if not improving, you may need to see a automotive service professional. Your lab work and vital signs look normal and please push fluids * Attachments The following attachments cannot be sent through Care Everywhere. * Colitis (Hebrew) documented in this encounter Medications at Time of Discharge escitalopram (LEXAPRO) 10 MG tablet 4 fremanezumab-vfrm (AJOVY) SOSY subcutaneous Inject subcutaneously every 30 days. ondansetron (ZOFRAN) 4 MG tablet Take by mouth every 8 hours as needed for nausea. rimegepant (NURTEC) [address] 75 mg under the tongue every 48 hours. documented as of this encounter ED Notes * Judie Diez MD - 01/11/2025 1:50 PM CDT Emergency Department Note History of Present Illness Chief Complaint Abdominal Pain HPI Amber Peña is a 29 year old female here for evaluation of abdominal pain. The patient states that since this morning she has been having sharp, cramping abdominal pain with diarrhea. She reportsthat she has felt shaky and sweaty. She notes that she has taken Tums, but they provided no relief.She says that she has been experiencing sharp centralized chest pain that is on and off for the past few months. No recent antibiotics. No recent travel or camping trips. No shortness of breath. No dizziness. No back pain. No family history of crohn's or ulcerative colitis. No recent illness. No fever, cough, sore throat. No nausea or vomiting. No one around her is sick. She notes that her last period was in November and she has abnormal periods. No vaginal discharge. No dysuria or hematuria. No changes in urinary frequency or urgency. Independent Historian None Review of External Notes I reviewed family medicine note from 01/05/2025. The patient was seen for joint pain fatigue. Borderline elevated CRP with the rest of the blood work looking normal. Past Medical History Medical History and Problem List Moderate episode of recurrent major depressive disorder Chronic pain of right knee Morbid obesity Chronic tension-type headache Mild intermittent asthma without complications Anxiety Carpal tunnel syndrome of right wrist Eczema Medications Cymbalta Ajovy auto-injector Nurtec ODT Surgical History No past surgical history on file. Physical Exam Patient Vitals for the past 24 hrs: BP Temp Temp src Pulse Resp SpO2 Height Weight 01/11/25 1324 (!) 145/111 97.7 ??F (36.5 ??C) Temporal 81 16 99 % 1.778 m (5' 10) 134.7 kg (296 lb15.4 oz) Physical Exam GENERAL: Awake, alert CARDIOVASCULAR: Regular rate and rhythm LUNGS: Clear bilaterally, no wheezes rales or rhonchi ABDOMEN: Mild tenderness to palpation left lower quadrant. No reproducible chest wall tenderness. EXTREMITIES: No peripheral edema NEURO: Awake and alert, moves all extremities Diagnostics Lab Results Labs Ordered and Resulted from Time of ED Arrival to Time of ED Departure ROUTINE UA WITH MICROSCOPIC - Abnormal Result Value Color Urine Light Yellow Appearance Urine Clear Glucose Urine Negative Bilirubin Urine Negative Ketones Urine Negative Specific Weld Urine 1.020 Blood Urine Negative pH Urine 5.5 Protein Albumin Urine Negative Urobilinogen Urine Normal Nitrite Urine Negative Leukocyte Esterase Urine Negative Mucus Urine Present (*) RBC Urine <1 WBC Urine <1 Squamous Epithelials Urine <1 BASIC METABOLIC PANEL - Normal Sodium 140 Potassium 4.1 Chloride 104 Carbon Dioxide (CO2) 24 Anion Gap 12 Urea Nitrogen 10.1 Creatinine 0.71 GFR Estimate >90 Calcium 9.9 Glucose 87 HCG QUALITATIVE URINE - Normal hCG Urine Qualitative Negative CBC WITH PLATELETS AND DIFFERENTIAL WBC Count 10.6 RBC Count 5.04 Hemoglobin 14.4 Hematocrit 41.3 MCV 82 MCH 28.6 MCHC 34.9 RDW 12.9 Platelet Count 338 % Neutrophils 68 % Lymphocytes 24 % Monocytes 6 % Eosinophils 1 % Basophils 0 % Immature Granulocytes 0 NRBCs per 100 WBC 0 Absolute Neutrophils 7.2 Absolute Lymphocytes 2.6 Absolute Monocytes 0.6 Absolute Eosinophils 0.1 Absolute Basophils 0.0 Absolute Immature Granulocytes 0.0 Absolute NRBCs 0.0 Imaging No orders to display EKG ECG results from 01/11/25 EKG 12 lead Value Systolic Blood Pressure Diastolic Blood Pressure Ventricular Rate 68 Atrial Rate 68 KS Interval 162 QRS Duration 102 QT 420 QTc 446 P [place] 37 R AXIS 1 T [place] 5 Interpretation ECG Sinus rhythm with sinus arrhythmia Normal ECG Interpreted by me at 1442 Independent Interpretation None ED Course Medications Administered Medications sodium chloride 0.9% BOLUS 1,000 mL (0 mLs Intravenous Stopped 01/11/25 1525) ketorolac (TORADOL) injection 15 mg (15 mg Intravenous $Given 01/11/25 1417) Procedures Procedures Discussion of Management None ED Course ED Course as of 01/11/25 2216 e Jan 11, 2025 1400 I obtained history and examined the patient as noted above. 1526 We discussed plan for discharge and the patient is comfortable with this. Additional Documentation None Medical Decision Making / Diagnosis [facility] Diagnoses: None MIPS None MDM Amber Peña is a 29 year old female who presents for evaluation of diarrhea and left lower abdominal tenderness. Patient was mildly hypertensive here otherwise normal vital signs. Her abdomen is quite benign with only minimal tenderness in left lower abdomen. She was given some IV fluids, labs showed no leukocytosis, normal BMP, she is not , no signs of UTI. Denies any vaginal complaints or risk factors for STIs. On reexamination her abdomen is still benign, do not believe that any imaging is warranted. Patient likely has gastroenteritis, possible colitis, which is likely viral, possible bacterial but most likely self-limited. No indication for advanced imaging or antibiotics at this point. Believe she is stable for discharge, no risk factors for C. difficile, will return if worsening, and is feeling better after some IV fluids and Toradol. Disposition The patient was discharged. Diagnosis ICD-10-CM 1. Diarrhea, unspecified type R19.7 2. Lower abdominal pain R10.30 3. Colitis K52.9 Discharge Medications Discharge Medication List as of 01/11/2025 3:25 PM Scribe Disclosure: I, Rosa Maria Mejia, am serving as a scribe at 2:00 PM on 01/11/2025 to document services personally performed by Judie Diez MD based on my observations and the provider's statements to me. Judie Diez MD 01/11/257 * Judie Olivera, RN - 01/11/2025 1:23 PM CDT Pt reports sharp, cramping abdominal pain since this morning. Also feeling shaky, sweaty and havingdiarrhea. Pt called her primary doctor and was told to come to the ED. Alert and ambulatory. documented in this encounter Plan of Treatment Not on file documented as of this encounter Procedures Procedure Name Priority Date/Time Associated Diagnosis Comments EXTRA TUBE STAT 01/11/2025 2:17 PM CDT EXTRA RED TOP TUBE STAT 01/11/2025 2: 17 PM CDT EXTRA BLUE TOP TUBE STAT 01/11/2025 2 :17 PM CDT CBC WITH PLATELETS AND DIFFERENTIAL STAT 01/11/2025 2:17 PM CDT CBC WITH PLATELETS & DIFFERENTIAL STAT 01/11/2025 2:17 PM CDT BASIC METABOLIC PANEL STAT 01/11/2025 2:17 PM CDT EKG 12-LEAD, TRACING ONLY STAT 01/11/2025 2:05 PM CDT HCG QUALITATIVE URINE STAT 01/11/2025 1:51 PM CDT ROUTINE UA WITH MICROSCOPIC STAT 01/11/2025 1:51 PM CDT documented in this encounter Results * Extra Red Top Tube (01/11/2025 2:17 PM CDT) [facility] Hold Specimen [facility] 01/11/2025 3:31 PM CDT LABORATORY Blood BLOOD SPECIMEN / Unknown Venipuncture / Unknown 01/11/2025 2:17 PM CDT 01/11/2025 2:24 PM CDT us Judie Diez MD LAB - BLOOD ORDERABLES Final Result [facility] [address] Lab (1st floor, no room number) [place] [address] * Extra Blue Top Tube (01/11/2025 2:17 PM CDT) Hold Specimen [facility] 01/11/2025 3:31 PM CDT [facility] LABORATORY Blood BLOOD SPECIMEN / Unknown Venipuncture / Unknown 01/11/2025 2:17 PM CDT 01/11/2025 2:24 PM CDT us Judie Diez MD LAB - BLOOD ORDERABLES Final Result Performing Organization Address City/[facility]/ZIP Co de Phone Number [facility] [address] Lab (1st floor, no room number) [place] [address] * CBC with platelets and differential (01/11/2025 2:17 PM CDT) WBC Count 10.6 4.0 - 11.0 10e3/uL 01/11/2025 2:29 PM CDT [facility] RBC Count 5.04 3.80 - 5.20 10e6/uL 01/11/2025 2:29 PM CDT [facility] Hemoglobin 14.4 11.7 - 15.7 g/dL 01/11/2025 2:29 PM CDT [facility] Hematocrit 41.3 35.0 - 47.0 % 01/11/2025 2:29 PM CDT [facility] MCV 82 78 - 100 fL 01/11/2025 2:29 PM CDT [facility] MCH 28.6 26.5 - 33.0 pg 01/11/2025 2:29 PM CDT [facility] MCHC 34.9 31.5 - 36.5 g/dL 01/11/2025 2:29 PM CDT [facility] RDW 12.9 10.0 - 15.0 % 01/11/2025 2:29 PM CDT [facility] Platelet Count 338 150 - 450 10e3/uL 01/11/2025 2:29 PM CDT [facility] % Neutrophils 68 % 01/11/2025 2:29 PM CDT [facility] % Lymphocytes 24 % 01/11/2025 2:29 PM CDT [facility] % Monocytes 6 % 01/11/2025 2:29 PM CDT [facility] % Eosinophils 1 % 01/11/2025 2:29 PM CDT [facility] % Basophils 0 % 01/11/2025 2:29 PM CDT [facility] % Immature Granulocytes 0 % 01/11/2025 2:29 PM CDT [facility] NRBCs per 100 WBC 0 <1 /100 025 2:29 PM CDT [facility] Absolute Neutrophils 7.2 1.6 - 8.3 10e3/uL 01/11/2025 2:29 PM CDT [facility] Absolute Lymphocytes 2.6 0.8 - 5.3 10e3/uL 01/11/2025 2:29 PM CDT [facility] Absolute Monocytes 0.6 0.0 - 1.3 10e3/uL 01/11/2025 2:29 PM CDT [facility] Absolute Eosinophils 0.1 0.0 - 0.7 10e3/uL 01/11/2025 2:29 PM CDT [facility] Absolute Basophils 0.0 0.0 - 0.2 10e3/uL 01/11/2025 2:29 PM CDT [facility] Absolute Immature Granulocytes 0.0 <=0.4 10e3/uL 01/11/2025 2:29 PM CDT [facility] Absolute NRBCs 0.0 10e3/uL 01/11/2025 2:29 PM CDT [facility] Blood BLOOD SPECIMEN / Unknown Venipuncture / Unknown 01/11/2025 2:17 PM CDT 01/11/2025 2:24 PM CDT us Judie Diez MD LAB - BLOOD ORDERABLES Final Result [facility]ORAT[facility] [address] Lab (1st floor, no room number) [place] [address] * Basic metabolic panel (BMP) (01/11/2025 2:17 PM CDT) Sodium 140 135 - 145 mmol/L 01/11/2025 2:51 PM CDT [facility] LABORATORY Potassium 4.1 3.4 - 5.3 mmol/L 01/11/2025 2:51 PM CDT [facility] LAB[facility] Chloride 104 98 - 107 mmol/L 01/11/2025 2:51 PM CDT [facility] Carbon Dioxide (CO2) 24 22 - 29 mmol/L 01/11/2025 2:51 PM CDT [facility] Anion Gap 12 7 - 15 mmol/L 01/11/2025 2:51 PM CDT [facility] Urea Nitrogen 10.1 6.0 - 20.0 mg/dL 01/11/2025 2:51 PM CDT LABORATORY Creatinine 0.71 0.51 - 0.95 mg/dL 01/11/2025 2:51 PM CDT LABORATORY GFR Estimate >90 >60 mL/min/1.7 3m2 01/11/2025 2:51 PM CDT LABORATORY Comment:eGFR calculated 2020 CKD-EPI equation. Calcium 9.9 8.8 - 10.4 mg/dL 01/11/2025 2:51 PM CDT LABORATORY Glucose 87 70 - 99 mg/dL 01/11/2025 2:51 PM CDT LABORATORY Blood BLOOD SPECIMEN / Unknown Venipuncture / Unknown 01/11/2025 2:17 PM CDT 01/11/2025 2:24 PM CDT us Judie Diez MD LAB - BLOOD ORDERABLES Final Result [facility]ORAT[facility] [address] Lab (1st floor, no room number) [place] [address], [facility] * EKG 12 lead (01/11/2025 2:05 PM CDT) Systolic Blood Pressure mmHg RADIOLOGY RESULTS Diastolic Blood Pressure mmHg RADIOLOGY RESULTS Ventricular Rate 68 BPM RAD IOLOGY RESULTS Atrial Rate 68 BPM RADIOLOG Y RESULTS KS Interval 162 ms RADIOLOG Y RESULTS QRS Duration 102 ms RADIOLO GY RESULTS QT 420 ms RADIOLOGY RESULTS QTc 446 ms RADIOLOGY RESULTS P [place] 37 degrees RADIOLOGY RESULTS R AXIS 1 degrees RADIOLOGY RESULTS T [place] 5 degrees RADIOLOGY RESULTS Interpretation ECG Sinus rhythm with sinus arrhythmia Normal ECG No previous ECGs available Unconfirmed report - interpretation of this ECG is computer generated - see medical record for final interpretation Confirmed by - EMERGENCY ROOM, PHYSICIAN ([id number]), newspaper or periodical editor Gato Marrufo ([id number]) on 01/11/2025 2:17:24 PM RADIOLOGY RESULTS 01/11/2025 2:05 PM CDT 01/11/2025 2:17 PM CDT Judie Diez MD ECG ORDERABLES Edited Resul t - Final RADIOLOGY RESULTS * HCG qualitative urine (01/11/2025 1:51 PM CDT) hCG Urine Qualitative Negative Negative MASSIEL 01/11/2025 2:00 PM CDT LABORATORY Comment:This test is for scr eening purposes. Results should be interpreted along with the clinical picture. Confirmation testing is available if warranted by ordering [id number], HCG Quantitative . Urine URINE SPECIMEN OBTAINED BY CLEAN CATCH PROCEDURE / Unknown Non-blood Collection / Unknown 01/11/2025 1:51 PM CDT 01/11/2025 1:53 PM CDT Judie Diez MD LAB - URINE ORDERABLES Final Result LABORATORY [facility] [address] Lab (1st floor, no room number) [place] [address], [facility] * (ABNORMAL) UA with Microscopic (01/11/2025 1:51 PM CDT) Color Urine Light Yellow Colorless, Straw, Light Yellow, Yellow 01/11/2025 1:59 PM CDT LABORATORY Appearance Urine Clear Clear 01/12/20 1:59 PM CDT LABORATORY Glucose Urine Negative Negative mg/dL 01/11/2025 1:59 PM CDT LABORATORY Bilirubin Urine Negative Negative 1:59 PM CDT LABORATORY Ketones Urine Negative Negative mg/dL 01/11/2025 1:59 PM CDT LABORATORY Specific Weld Urine 1.020 1.003 - 1.035 01/11/2025 1:59 PM CDT [facility] LABORATORY Blood Urine Negative Negative 01/11/2025 1:59 PM CDT LABORATORY pH Urine 5.5 5.0 - 7.0 01/11/2025 1:59 PM CDT [facility] LABORAT[facility] Protein Albumin Urine Negative Negative mg/dL 01/11/2025 1:59 PM CDT [facility] LABORATORY Urobilinogen Urine Normal Normal mg/dL 01/11/2025 1:59 PM CDT [facility] LAB[facility]AT[facility] Nitrite Urine Negative Negative 01/11/2025 1:59 PM CDT [facility] LAB[facility]AT[facility] Leukocyte Esterase Urine Negative Negative 01/11/2025 1:59 PM CDT LABORATORY Mucus Urine Present(A) None Seen /LPF 01/11/2025 1:59 PM CDT LABORATORY RBC Urine <1 <=2 /HPF 01/11/2025 1:59 PM CDT LABORATORY WBC Urine <1 <=5 /HPF 01/11/2025 1:59 PM CDT [facility] LABORATORY Squamous Epithelials Urine <1 <=1 /HPF 01/11/2025 1:59 PM CDT LABORATORY Urine URINE SPECIMEN OBTAINED BY CLEAN CATCH PROCEDURE / Unknown Non-blood Collection / Unknown 01/11/2025 1:51 PM CDT 01/11/2025 1:53 PM CDT us Judie Diez MD LAB - URINE ORDERABLES Final Result LABORATORY [facility] [address] Lab (1st floor, no room number) [place] [address], [facility] documented in this encounter Visit Diagnoses Diagnosis Diarrhea, unspecified type Lower abdominal pain Abdominal pain, other specified site Colitis Other and unspecified noninfectious gastroenteritis and colitis documented in this encounter Administered Medications Inactive Administered Medications - up to 3 most recent administrations Medication Order MAR Action Action Date Dose Rate Site ketorolac (TORADOL) injection 15 mg 15 mg, Intravenous, ONCE, On Fri01/11/25 at 1400, For 1 dose, Can cause pain on injection. If ordered intravenously (IV) : administer through a running maintenance fluid over 1 minute followed by a flush. If patient complains of pain on injection, may dilute 15-30 mg in 5 mL and push over 1 to 2 minutes. $Given 01/11/2025 2:17 PM CDT 15 mg sodium chloride 0.9% BOLUS 1,000 mL Intravenous, 1,000 mL, ONCE, at 1,000 mL/hr, Administer over 1 Hours, On Fri01/11/25 at 1400, For 1 dose $New Bag 01/11/2025 2:17 PM CDT 1,000 mLs 1000 mL/hr documented in this encounter Active and Recently Administered Medications Times are shown in CDT. Scheduled Medication Order 01/09/2025 01/10/2025 01/11/2025 ketorolac (TORADOL) injection 15 mg (COMPLETED) 15 mg, Intravenous, ONCE, On Fri01/11/25 at 1400, For 1 dose, Can cause pain on injection. If ordered intravenously (IV) : administer through a running maintenance fluid over 1 minute followed by a flush. If patient complains of pain on injection, may dilute 15-30 mg in 5 mL and push over 1 to 2 minutes. 1417 ($Given - Provi annette: Fred Martinez RN) sodium chloride 0.9% BOLUS 1,000 mL (COMPLETED) Intravenous, 1,000 mL, ONCE, at 1,000 mL/hr, Administer over 1 Hours, On Fri01/11/25 at 1400, For 1 dose 1417 ($New Bag - Pro vider: Fred Martinez RN)1525 (Stopped - Provider: Merline Arias RN) documented in this encounter Care Teams Fertilizer Mixer Relationship Specialty Start Date End Date Brandi Pond PA [address] [place] [address] PCP - General Family Practice 03/03/24 documented as of this encounter
--- OUTSIDE RECORDS SUMMARY | 2025-02-09 12:46 | XMS_ITS | Clinical Summary ---
[facility] Address [address] [place] [address] Care Team Providers Care Gullet Slitter Name Role Phone Elle Billingsley APRN, CLINICAL MICROBIOLOGIST Primary Care Provider + Source Comments You are receiving this document as you are listed as the primary care provider,follow-up provider, or the patient has been referred to you for consultation.This is in compliance with the Medicare andOhio[facility] Hospitalca[facility] EHR Incentive Program,which states Providers who transition their patient to another setting of careor provider of care or refers their patient to another provider of care shouldprovide summary care record for each transition of care or referral. [facility] Allergies Active Allergy Reactions Criticality Noted Date [...] hours as needed. 08/24/19 25 026 Active Active Problems Problem Noted Date Diagnosed [...] sore throat 10/17/2005 Overview (03/05/2017): LW Onset: [id number] ; Pharyngitis Streptococcal Immunizations Immunization Administration Dates Next Due 4vHPV (Gardasil) 07/01/2014 9vHPV (Gardasil 9) 04/13/2019,04/23/2018 Bexsero (Meningococcal Group B Vaccine) 04/23/20 18 DTP-Hib (Tetramune) 05/16/1998,03/29/1998 DTaP 12/20/2002,06/25/1999,1997 Flu Vac (3+ yrs) 06/16/2003 Flu Vac Preserv Free (3+yrs) 04/12/2010,03/14/20 09 HepB Ped/Adol (0-18 yrs) 05/16/1998,1997,0 1997 Hib (HbOC) 01/05/1999,1997 IPV (Polio) 12/20/2002,03/29/1998,1997 Influenza IIV4 (Quadrivalent) 0.5mL (41138) 100 07/2018,04/12/2014,03/30/2013 MCV4 (Menactra) 03/14/2009 MMR 12/20/2002,01/05/1999 OPV, [...] Comments Blood Pressure 139/93 09/01/2024 8:56 AM STOPPER GRINDER Pulse 86 09/01/2024 8:56 AM STOPPER GRINDER Temperature 36.7 C (98 F) 09/01/2024 8:56 AM STOPPER GRINDER Respiratory Rate 16 09/01/2024 8:56 AM STOPPER GRINDER Oxygen Saturation 97% 09/01/2024 8:56 AM STOPPER GRINDER Inhaled Oxygen Concentration - - Weight 117.8 kg (259 lb 9.6 oz) 09/15/2019 4:05 PM STOPPER GRINDER Height 177.8 cm (5' 10) 09/15/2019 4:05 PM STOPPER GRINDER Body Mass Index 37.25 09/15/2019 4:05 PM STOPPER GRINDER Plan of Treatment Health Maintenance Due Date Last Done Comments Hep C Screening (Preventive Services) 1997 HIV Screening (Preventive Services) 2013 Adult Preventive Visit 10/04/2015 03/16/2002 Pneumococcal Vaccine (1 of 2 - PCV) 2016 Meningococcal B Vaccine (2 of 2 - Bexsero SCDM 2-dose series) 10/22/2018 04/23/2018 DTaP/Tdap/Td Vaccine (7 - Tdap) 03/20/2020 03/20/2010, 12/20/2002, 06/25/1999, Additional history exists Asthma ACT (score of 20 or higher) 09/14/2020 09/15/2019, 11/05/2018, 07/16/2016 Cervical Cancer Screening 08/01/2021 08/01/2020, 04/2019 COVID-19 Vaccine ( season) 2024 09/11/2020, 08/14/2020 Influenza Vaccine (#1) 2025 9, 06/13/2017, 05/08/2016, Additional history exists Zoster/Shingles Vaccine (1 of 2) 10/04/2047 HepB Vaccine Completed 05/16/1998, 09/1997, 1997 Hib Vaccine Completed 01/05/1999, 09/1997, 03/29/1998, Additional history exists IPV (Polio) Vaccine Completed 12/20/2002, 01/05/1999, 01/05/1999, Additional history exists MCV4 Vaccine Aged Out 03/14/2009 No longer eligi ble based on patient's age to complete this topic Varicella Vaccine Completed 07/01/2014, , 01/05/1999 HPV Vaccine Completed 04/13/2019, 04/13, 07/01/2014 Chlamydia Discontinued 08/01/2020, 12/12, 02/27/2016, Additional history exists HepA Vaccine Aged Out No longer eligi ble based on patient's age to complete this topic Procedures Procedure Name Priority Date/Time Associated Diagnosis Comments CHLAMYDIA & GC (14 YEARS & OLDER) Routine 12/21/2018 8:38 AM CDT Screening for STD (sexually transmitted disease) CYTOLOGY (PAP) Routine 12/21/2018 8:38 AM CDT Screening for cervical cancer from Last 3 Months or Most Recently Relevant to Health Maintenance Results * (ABNORMAL) PAP Test (12/21/2018 8:38 AM CDT) Case Report Pap Case: [id number] Authorizing Provider: Elle Billingsley APRN, CNP Collected: 12/21/2018 08:38 AM Ordering Location: [facility] Received: 12/21/2018 09:02 AM First Screen: Kary Salinas Pathologist: Karlene Quiros MD Specimen: Pap Test, Routine, Cervix/Endocervix 12/28/2018 4:55 PM [facility] Pap Specimen Adequacy Satisfactory for evaluation, endocervical/palmer sformation zone component present. 12/28/2018 4:55 PM [facility] Pap Interpretation Low-grade squamous intraepithelial lesion (LSIL), encompassing HPV/mild dysplasia/JESE 1.(A) 12/28/2018 4:55 PM [facility] at 1655 CDT Gross Description The specimen is received in SurePath fixative and properly labeled. 1 Pap-stained SurePath slide is prepared. 12/28/2018 4:55 PM [facility] Pap Disclaimer The Pap test is a screening test designed to aid in the detection of cervical cancer and its precursor lesions. It is not a diagnostic procedure and should not be used as the sole means of detecting cervical cancer. Both false-positive and false-negative reports may occur. 12/28/2018 4:55 PM [facility] Embedded Images 4:55 PM [facility] Other Specimen Type ENTIRE ENDOCERVIX / Unknown 12/21/2018 8:38 AM CDT 12/21/2018 9:02 AM CDT Comment:LMP: Patient's last menstrual period was 11/26/2018 (approximate). us Elle Billingsley APRN, CNP LAB PATHOLOGY Final Re sult [address] [address], [facility] [phone] * Chlamydia & GC (14 Years and Older) (12/21/2018 8:38 AM CDT) Chlamydia Trachomatis STD Not Detected Not Detected 12/21/2018 5:[address] [facility] N. gonorrhoeae STD Not Detected Not Detected 12/21/2018 5:[address] [facility] Swab (Source Required) ENTIRE ENDOCERVIX / Unknown Non-blood Collection / Unknown 12/21/2018 8:38 AM CDT 12/21/2018 9:[address] [facility] - 12/21/2018 5:20 PM CDT Test performed by Molecular Detection us Elle Billingsley TEMPLATE STORAGE CLERK, CLINICAL MICROBIOLOGIST LAB_[address] [facility] [address] [phone] from Last 3 Months or Most Recently Relevant to Health Maintenance Insurance [email or web address] [facility] [email or web address] [facility] INSURANCE [facility] [id number] Advance Directives * Full Code (Latest Code Status on File) Date Activated Date Inactivated Comments 01/11/2019 4:06 PM 01/11/2019 7:48 PM * No Code Status Date Activated Date Inactivated Comments 07/03/2004 5:24 PM 07/03/2004 6:24 PM Care Teams Gullet Slitter Relationship Specialty Start Date End Date Elle Billingsley APRN, CLINICAL MICROBIOLOGIST PCP - General Nurse Practitioner 11/05/18
--- OUTSIDE RECORDS SUMMARY | 2025-02-09 12:46 | XMS_ITS | Clinical Summary ---
Author Organization [facility] Address [address] [place] [address] Care Team Providers Care Sex Therapist Name Role Phone Brandi Pond Primary Care Provider [phone] Allergies Active Allergy Reactions Criticality Noted Date [...] 8 hours as needed for nausea. Active Encounters Date Type Department Care Team Description 01/11/2025 1:48 PM CDT - 01/11/2025 3:48 PM CDT Emergency [facility] Emergency Dept [address] [place] [address] Judie Diez MD Diarrhea, unspecified type; Lower abdominal pain; Colitis Discharge Disposition: Home or Self Care 01/11/2025 Travel from Last 3 Months Social History Tobacco Use Types Packs/Day Years [...] Mass Index 42.61 01/11/2025 1:24 PM CDT Plan of Treatment Health Maintenance Due Date Last Done Comments ADVANCE CARE PLANNING 1997 ANNUAL REVIEW OF HM ORDERS 1997 HIV SCREENING 2012 HEPATITIS C SCREENING 10/04/2015 COVID-19 VACCINE ( season) 2024 PHQ-2 (once per calendar year) 2024 YEARLY PREVENTIVE VISIT 01/06/2025 01/07/20 24, 08/01/2020, 04/23/2018, Additional history exists INFLUENZA VACCINE (#1) 2025 9, 06/13/2017, 05/08/2016, Additional history exists PAP 01/06/2027 01/07/2024, 07/14, 12/21/2018 DTAP/TDAP/TD VACCINE (8 - Td or Tdap) 12/31/2032 12/31/2022, 03/20/2010, 12/20/2002, Additional history exists ZOSTER VACCINE (1 of 2) 10/04/2047 HEPATITIS B VACCINE Completed 05/16/1998, 1997, 1997 MENINGITIS VACCINE Aged Out 03/14/2009 No longer eligible based on patient's age to complete this topic HPV VACCINE Completed 04/13/2019, 04/13, 07/01/2014 PNEUMOCOCCAL VACCINE: PEDIATRICS (0 to 5 YEARS) AND AT-RISK PATIENTS (6 to 49 YEARS) Aged Out No longer eligible based on patient's age to complete this topic Procedures Procedure Name Priority Date/Time Associated Diagnosis Comments CBC WITH PLATELETS & DIFFERENTIAL STAT 01/11/2025 2:17 PM CDT EXTRA RED TOP TUBE STAT 01/11/2025 2: 17 PM CDT EXTRA BLUE TOP TUBE STAT 01/11/2025 2 :17 PM CDT CBC WITH PLATELETS AND DIFFERENTIAL STAT 01/11/2025 2:17 PM CDT EXTRA TUBE STAT 01/11/2025 2:17 PM CDT BASIC METABOLIC PANEL STAT 01/11/2025 2:17 PM CDT EKG 12-LEAD, TRACING ONLY STAT 01/11/2025 2:05 PM CDT HCG QUALITATIVE URINE STAT 01/11/2025 1:51 PM CDT ROUTINE UA WITH MICROSCOPIC STAT 01/11/2025 1:51 PM CDT from Last 3 Months Results * Extra Red Top Tube (01/11/2025 2:17 PM CDT) Hold Specimen [facility] 01/11/2025 3:31 PM CDT [facility] Blood BLOOD SPECIMEN / Unknown Venipuncture / Unknown 01/11/2025 2:17 PM CDT 01/11/2025 2:24 PM CDT us Judie Diez MD LAB - BLOOD ORDERABLES Final Result LABORATORY [facility] [address] Lab (1st floor, no room number) [place] [address], [facility] * Extra Blue Top Tube (01/11/2025 2:17 PM CDT) Hold Specimen [facility] 01/11/2025 3:31 PM CDT LABORATORY Blood BLOOD SPECIMEN / Unknown Venipuncture / Unknown 01/11/2025 2:17 PM CDT 01/11/2025 2:24 PM CDT us Judie Diez MD LAB - BLOOD ORDERABLES Final Result [facility] [address] Lab (1st floor, no room number) [place] [address], [facility] * CBC with platelets and differential (01/11/2025 [...] MD LAB - BLOOD ORDERABLES Final Result LABORATORY [facility] [address] [facility] Lab (1st floor, no room number) [place] [address], [facility] * Basic metabolic panel (BMP) (01/11/2025 2:17 PM CDT) Sodium 140 135 - 145 mmol/L 01/11/2025 2:51 PM CDT LABORATORY Potassium 4.1 3.4 - 5.3 mmol/L 01/11/2025 2:51 PM CDT [facility] Chloride 104 98 - 107 mmol/L 01/11/2025 2:51 PM CDT LABORATORY Carbon Dioxide (CO2) 24 22 - 29 mmol/L 01/11/2025 2:51 PM CDT LABORATORY Anion Gap 12 7 - 15 mmol/L 01/11/2025 2:51 PM CDT LABORATORY Urea Nitrogen 10.1 6.0 - 20.0 mg/dL 01/11/2025 2:51 PM CDT LABORATORY Creatinine 0.71 0.51 - 0.95 mg/dL 01/11/2025 2:51 PM CDT [facility] GFR Estimate >90 >60 mL/min/1.7 3m2 01/11/2025 2:51 PM CDT [facility] Comment:eGFR calculated us2020 CKD-EPI equation. Calcium 9.9 8.8 - 10.4 mg/dL 01/11/2025 2:51 PM CDT [facility] Glucose 87 70 - 99 mg/dL 01/11/2025 2:51 PM CDT [facility] Blood BLOOD SPECIMEN / Unknown Venipuncture / Unknown 01/11/2025 2:17 PM CDT 01/11/2025 2:24 PM CDT us Judie Diez MD LAB - BLOOD ORDERABLES Final Result [facility]AT[facility] [address] Lab (1st floor, no room number) [place] [address] * EKG 12 lead (01/11/2025 2:05 PM CDT) Systolic Blood Pressure mmHg RADIOLOGY RESULTS Diastolic Blood Pressure mmHg RADIOLOGY RESULTS Ventricular Rate 68 BPM RAD IOLOGY RESULTS Atrial Rate 68 BPM RADIOLOG Y RESULTS WI Interval 162 ms RADIOLOG Y RESULTS QRS Duration 102 ms RADIOLO GY RESULTS QT 420 ms RADIOLOGY RESULTS QTc 446 ms RADIOLOGY RESULTS P [place] 37 degrees RADIOLOGY RESULTS R AXIS 1 degrees RADIOLOGY RESULTS T [place] 5 degrees RADIOLOGY RESULTS Interpretation ECG Sinus rhythm with sinus arrhythmia Normal ECG No previous ECGs available Unconfirmed report - interpretation of this ECG is computer generated - see medical record for final interpretation Confirmed by - EMERGENCY ROOM, PHYSICIAN ([id number]), editorial writer Gato Marrufo ([id number]) on 01/11/2025 2:17:24 PM RADIOLOGY RESULTS 01/11/2025 2:05 PM CDT 01/11/2025 2:17 PM CDT us Judie Diez MD ECG ORDERABLES Edited Resul t - Final RADIOLOGY RESULTS * HCG qualitative urine (01/11/2025 1:51 PM CDT) hCG Urine Qualitative Negative Negative MASSIEL 01/11/2025 2:00 PM CDT [facility] Comment:This test is for scr eening purposes. Results should be interpreted along with the clinical picture. Confirmation testing is available if warranted by ordering [id number], HCG Quantitative . Urine URINE SPECIMEN OBTAINED BY CLEAN CATCH PROCEDURE / Unknown Non-blood Collection / Unknown 01/11/2025 1:51 PM CDT 01/11/2025 1:53 PM CDT us Judie Diez MD LAB - URINE ORDERABLES Final Result LABORATORY [facility] [address] [facility] Lab (1st floor, no room number) [place] [address] * (ABNORMAL) UA with Microscopic (01/11/2025 1:51 PM CDT) Color Urine Light Yellow Colorless, Straw, Light Yellow, Yellow 01/11/2025 1:59 PM CDT LABORATORY Appearance Urine Clear Clear 01/12/20 25 1:59 PM CDT LABORATORY Glucose Urine Negative Negative mg/dL 01/11/2025 1:59 PM CDT LABORATORY Bilirubin Urine Negative Negative 1:59 PM CDT LABORATORY Ketones Urine Negative Negative mg/dL 01/11/2025 1:59 PM CDT LABORATORY Specific [place] Urine 1.020 1.003 - 1.035 01/11/2025 1:59 [...] None Seen /LPF 01/11/2025 1:59 PM CDT [facility] RBC Urine <1 <=2 /HPF 01/11/2025 1:59 PM CDT [facility] WBC Urine <1 <=5 /HPF 01/11/2025 1:59 PM CDT [facility] Squamous Epithelials Urine <1 <=1 /HPF 01/11/2025 1:59 PM CDT [facility] Urine URINE SPECIMEN OBTAINED BY CLEAN CATCH PROCEDURE / Unknown Non-blood Collection / Unknown 01/11/2025 1:51 PM CDT 01/11/2025 1:53 PM CDT us Judie Diez MD LAB - URINE ORDERABLES Final Result LABORATORY [facility] Lab [address] Lab (1st floor, no room number) [place] [address], [facility] from Last 3 Months Insurance [employer] [place] [phone] NONPROFIT INSURANCE [employer] Care Teams Sex Therapist Relationship Specialty Start Date End Date Brandi Pond PA [address] [place] [address] PCP - General Family Practice 03/03/24
--- OUTSIDE RECORDS SUMMARY | 2025-02-09 12:46 | XMS_ITS | Encounter Summary ---
Author Organization On license of [facility] Address [address] [place] [address] Care Team Providers Care Gravel Weigher Name Role Phone Elle Billingsley APRN, CNP Primary Care Provider + Encounter Details Date Type Department Care Team (Late st Contact Info) Description 09/20/2015 Orders Only [facility] [address] [place] [address] Omari Suarez MD [address] [place] [address] Social History Tobacco Use Types Packs/Day Years [...] on filedocumented in this encounter Care Teams Gravel Weigher Relationship Specialty Start Date End Date Elle Billingsley APRN, CNP PCP - General Nurse Practitioner 11/05/18 documented as of this encounter
--- OUTSIDE RECORDS SUMMARY | 2025-02-09 12:46 | XMS_ITS | Clinical Summary ---
Author Organization [facility] Address [address] [address] Phone Care Team Providers Care Storage Solutions Architect Name Role Phone Elsewhere, Pcp Primary Care [...] on file Legal Sex Female 9:35 PM PROGRAMMER OR ANALYST Gender Identity Not on file Sexual Orientation [...] 177.8 cm (5' 10) 08/12/2016 2:25 PM PROGRAMMER OR ANALYST Body Mass Index 40.05 08/12/2016 2:25 PM PROGRAMMER OR ANALYST Plan of Treatment Health Maintenance Due Date Last Done Comments Cervical Cancer Screening 1997 Last pap w/ HPV Testing 1997 Last pap w/o HPV Testing 1997 Hepatitis B Vaccine (Standin g Order) (1 of 3 - 19+ 3-dose series) 2016 PERTUSSIS (Standing Order) 2016 TETANUS (Standing Order) 2016 HPV Vaccine (Standing Order) Aged Out No longer eligible based on patient's age to complete this topic Pneumococcal/PCV20 Vaccine: Pediatrics (2-5 yrs) and At-Risk Patients (6-49 yrs) (Standing Order) Aged Out No longer eligible b ased on patient's age to complete this topic Insurance [facility] Address: [address] [address] Care Teams Storage Solutions Architect Relationship Specialty Start Date End Date Elsewhere, Pcp PCP - General 06/18/16
--- OUTSIDE RECORDS SUMMARY | 2025-02-09 12:47 | XMS_ITS | Clinical Summary ---
Author Organization [facility] Address [address] [place] [address] Care Team Providers Care Water Systems Designer Name Role Phone Brandi Pond Primary Care Provider [phone] Allergies Active Allergy Reactions Criticality Noted Date Comments Amoxicillin Rash Medium 09/06/2019 Medications triamcinolone 0.5% (ARISTOCORT) 0.5 % creamIndications:I rritant contact dermatitis, unspecified trigger Apply topically to affected area(s) two times daily. 15 g 09/08/19 24 Active albuterol HFA (PRO-AIR; VENTOLIN; PROVENTIL) [...] the tongue once every other day. Active hydrOXYzine HCL 25 mg tabletIndications: ALEXIA (generalized anxiety disorder) Take 2 Tablets (50 mg) by mouth at bedtime. 180 Tablet 1 10/14/19 25 Active dicyclomine (BENTYL) 10 mg capsule Take 1 Capsule by mouth every 8 hours. 01/19/20 25 Active sertraline (ZOLOFT) 100 mg tabletIndications: ALEXIA (generalized anxiety disorder),Depressi on, recurrent Take 1.5 Tablets (150 mg) by mouth once daily in the morning. 135 Tablet 3 02/09/20 25 Active meclizine (ANTIVERT) 25 mg tabletIndications: Vertigo Take 1 Tablet (25 mg) by mouth 3 times daily if needed for Vertigo. 30 Tablet 02/09/20 25 Active betamethasone dipropionate 0.05 % ointmentIndication s:Alopecia areata Apply topically to affected area(s) once daily in the morning. 45 g 1 02/09/20 25 Active sertraline 100 mg tabletIndications: Anxiety and depression Take 1 Tablet (100 mg) by mouth once daily in the morning. 90 Tablet 3 11/11/19 25 025 Discontin ued(*Med complete/ Regimen complete/ Level of care change) Active Problems Problem Noted Date Diagnosed Date [...] Encounters Date Type Department Care Team Description 02/08/2025 7:50 AM CDT Office Visit [facility] [address] [place] [address] [phone] Brandi Pond PA Follow Up (Joint pain in hips.); Derm Problem (Warts on middle finger right hand./Bald spot. /Left sided jaw discomfort.) 02/08/2025 Travel 01/11/2025 Nurse Triage [facility] [address] [place] [address] Brandi Pond PA Abdominal Pain 01/05/2025 7:25 AM CDT Office Visit [facility] [address] [place] [address] Brandi Pond PA Pain (Joint pain, Fatigue and Night sweats. Sx started a few months ago. ) 01/05/2025 Travel 11/10/2024 7:25 AM CDT Office Visit [facility] [address] [place] [address] Brandi Pond PA Medication Management; Concerns (Possible sinus infection. Just recently started. Pressure in facial and congestion.) 11/10/2024 Travel from Last 3 Months Immunizations Immunization Administration Dates Next Due DTP-HIB 05/16/1998,03/29/1998 DTaP [...] 12/31/2022 Tdap 03/20/2010 Varicella Vaccine 07/01/2014,03/20/2010,01/05/19 99 Family History Medical History Relation Name Comments Rheum arthritis Maternal Grandmother Hypothyroidism Mother Relation Name Status Comments Maternal Grandmother Alive Mother Alive Social History Tobacco Use Types Packs/Day Years Used Date Smoking Tobacco: Never Smokeless Tobacco: Never Tobacco Cessation:Counseling Given: Yes Alcohol Use Standard Drinks/Week Comments Yes 0 (1 standard drink = 0.6 oz pur e alcohol) Occasional PHQ-2 Answer Date Recorded PHQ-2 TOTAL SCORE 4 11/10/2024 Social Connections Answer Date Recorded Do you often feel lonely or isolated from those around you? 0 10/13/2024 Financial Resource Strain Answer Date R ecorded Difficulty of Paying Living Expenses 3 10/13/2024 Difficulty of Paying Living Expenses Not on file 10/13/2024 Food Insecurity Answer Date Recorded Do you worry your food will run out before you are able to buy more? 1 10/13/2024 Transportation Needs Answer Date Record ed Does lack of transportation keep you from medica l appointments? 1 10/13/2024 Does lack of transportation keep you from work, meetings or getting things that you need? 1 10/13/2024 Housing Stability Answer Date Recorded What is your housing situation today? 1 10/13/2024 Utilities Answer Date Recorded Do you have trouble paying f or utilities (for example, heat, electricity, water, phone)? 1 10/13/2024 Comments No Sex and Gender Information Value Date Recorded Sex Assigned at Not on file Legal Sex Female 7:09 PM CDT Gender Identity Not on file Sexual Orientation Not on file Obstetrics History Last Filed Vital Signs Vital Sign Reading Time Taken Comments Blood Pressure 130/78 02/08/2025 7:54 AM CDT Pulse 97 02/08/2025 7:54 AM CDT Temperature 36.2 C (97.1 F) 07/22/2024 3:33 PM CHILD WELFARE MANAGER Respiratory Rate 14 07/22/2024 3:33 PM CHILD WELFARE MANAGER Oxygen Saturation 98% 02/08/2025 7:54 AM CDT Inhaled Oxygen Concentration - - Weight 134.7 kg (297 lb) 02/08/2025 7:54 AM CDT Height 180.2 cm (5' 10.95) 07/22/2024 3:[address] Body Mass Index 41.49 07/22/2024 3:33 PM CHILD WELFARE MANAGER Plan of Treatment Health Maintenance Due Date Last Done Comments HIV for age 15-65 2012 Hepatitis C screening for age 18-79 10/04/2015 COVID-19 vaccine series ( season) 2024 09/11/2020, 08/14/2020 Influenza Vaccine (#1) 2025 9, 06/13/2017, 05/08/2016, Additional history exists BMI (ht and wt on same day) for age 18+ 07/22/2025 07/22/2024, 01/07/2024, 02/14/2016 Depression screening for age 12+ 11/10/2025 11/10/2024, 10/13/2024, 10/07/2023, Additional history exists Pap test for age 21-65 01/06/2029 , 01/07/2024, 08/01/2020 (Verified in Care Everywhere or Patient Record) Tetanus booster 12/31/2032 12/31/2022, 03/20/2010 Hepatitis B series for 19+ Completed 05/16, 1997, 1997 Pneumococcal series for age 6-49 Aged Out No longer eligible based on patient's age to complete this topic Procedures Procedure Name Priority Date/Time Associated Diagnosis Comments TSH WITH REFLEX Routine 01/05/2025 8:18 AM CDT Fatigue, unspecified type Arthralgia, unspecified joint VITAMIN D 25 (DEFICIENCY) Routine 01/05/2025 8:18 AM CDT Fatigue, unspecified type Arthralgia, unspecified joint RA QUANTITATIVE Routine 01/05/2025 8:18 AM CDT Fatigue, unspecified type Arthralgia, unspecified joint ANTINUCLEAR ANTIBODY BY IFA Routine 01/05/2025 8:18 AM CDT Fatigue, unspecified type Arthralgia, unspecified joint SEDIMENTATION RATE Routine 01/05/2025 7: 52 AM CDT CBC WITH AUTO DIFFERENTIAL Routine 01/05/2025 7:52 AM CDT Fatigue, unspecified type FERRITIN Routine 01/05/2025 7:52 AM CDT Fatigue, unspecified type C-REACTIVE PROTEIN Routine 01/05/2025 7: 52 AM CDT Arthralgia, unspecified joint Night sweats PHYSIOLOGICAL CHEMIST THIN PREP PAP SCREEN IMAGED Routine 01/07/2024 7:20 AM CDT Screening for malignant neoplasm of cervix from Last 3 Months or Most Recently Relevant to Health Maintenance Results * ANTINUCLEAR ANTIBODY BY IFA (01/05/2025 8:18 AM CDT) AYDE SCREEN, IFA NEGATIVE NEGATIVE [facility] Comment: AYDE IFA is a first line screen for detecting the presence of up to approximately 150 autoantibodies in various autoimmune diseases. A negative AYDE IFA result suggests an AYDE-associated autoimmune disease is not present at this time, but is not definitive. If there is high clinical suspicion for Sjogren's syndrome, testing for anti-SS-A/Ro antibody should be considered. Anti-Mohini-1 antibody should be considered for clinically suspected inflammatory myopathies. AC-0: Negative International Consensus on AYDE Patterns (https://doi.org/10.1515/swss-9075-8059) For additional information, please refer to http://education.[employer] [place] [employer]/faq/UUM703 (This link is being provided for informational/ educational purposes only.) Blood BLOOD SPECIMEN / Unknown 01/05/2025 8:18 AM CDT 01/05/2025 8:19 AM CDT us rBandi TOLENTINO CHEMISTRY Final Res ult [facility] [address] [place] [address], [facility] [address] [place] [phone] * TSH WITH REFLEX (01/05/2025 8:18 AM CDT) TSH W/REFLEX TO FT4 1.70 mIU/L [facility] Sahni Comment: Reference Range > or = 20 Years 0.40-4.50 Ranges First trimester 0.26-2.66 Second trimester 0.55-2.73 Third trimester 0.43-2.91 Blood BLOOD SPECIMEN / Unknown 01/05/2025 8:18 AM CDT 01/05/2025 8:19 AM CDT Brandi TOLENTINO CHEMISTRY Final Res ult [facility] [facility] [address] [place] [address], [employer] [address] * VITAMIN D 25 (DEFICIENCY) (01/05/2025 8:18 AM CDT) [facility] VITAMIN D,25-OH,TOTAL,IA 30 30 - 100 ng/mL [employer] jc Sahni Comment: Vitamin D Status 25-OH Vitamin D: Deficiency: <20 ng/mL Insufficiency: 20 - 29 ng/mL Optimal: > or = 30 ng/mL For 25-OH Vitamin D testing on patients on D2-supplementation and patients for whom quantitation of D2 and D3 fractions is required, the QuestAssureD(TM) 25-OH VIT D, (D2,D3), LC/MS/MS is recommended: order code 34919 (patients >2yrs). See Note 1 Note 1 For additional information, please refer to http://education.[employer]infloor.[employer] [place] [employer]/faq/PLC351 (This link is being provided for informational/ educational purposes only.) Blood BLOOD SPECIMEN / Unknown 01/05/2025 8:18 AM CDT 01/05/2025 8:19 AM CDT Brandi TOLENTINO SEND OUTS Final Res ult Performing Organization Address [facility]/ZIP Co de Phone Number [facility] [address] [place] [address], [place] [phone] [facility] [address] [facility] [place] [address] * RA QUANTITATIVE (01/05/2025 8:18 AM CDT) RHEUMATOID FACTOR <10 <14 IU/mL [facility] Blood BLOOD SPECIMEN / Unknown 01/05/2025 8:18 AM CDT 01/05/2025 8:19 AM CDT us Brandi TOLENTINO SEND OUTS Final Res ult Performing Organization Address [facility] Co de Phone Number [facility] [address] [place] [address], [place] [phone] [facility] [address] [facility] [place] [address] * SEDIMENTATION RATE (01/05/2025 7:52 AM CDT) SED RATE BY MODIFIED WESTERGREN 6 < OR = 20 mm/h [facility] mercedes Sahni 01/05/2025 7:52 AM CDT 01/05/2025 7:52 AM CDT us Brandi TOLENTINO HEMATOLOGY Final Res ult Performing Organization Address City/[facility]/ZIP Co de Phone Number [facility] [address] [place] [address], [place] [phone] [facility] [address] [place] [address] * (ABNORMAL) C-REACTIVE PROTEIN (01/05/2025 7:52 AM CDT) [facility] C-REACTIVE PROTEIN 8.2(H) <8.0 mg/L [facility] mercedes [facility]ae Blood BLOOD SPECIMEN / Unknown 01/05/2025 7:52 AM CDT 01/05/2025 7:52 AM CDT Brandi TOLENTINO CHEMISTRY Final Res ult [facility] [address] [place] [address], [facility] [address] [place] [address] * CBC AND DIFFERENTIAL (01/05/2025 7:52 AM CDT) [facility] WHITE BLOOD CELL COUNT 8.1 3.8 - 10.8 Thousand/u L [facility] RED BLOOD CELL COUNT 5.09 3.80 - 5.10 Million/uL [facility] HEMOGLOBIN 14.6 11.7 - 15.5 g/dL [facility] HEMATOCRIT 43.5 35.0 - 45.0 % [facility] MCV 85.5 80.0 - 100.0 fL [facility] MCH 28.7 27.0 - 33.0 pg [facility] MCHC 33.6 32.0 - 36.0 g/dL [facility] Comment: For adults, a slight decrease in the calculated MCHC value (in the range of 30 to 32 g/dL) is most likely not clinically significant; however, it should be interpreted with caution in correlation with other red cell parameters and the patient's clinical condition. RDW 13.0 11.0 - 15.0 % [facility] PLATELET COUNT 326 140 - 400 Thousand/u L [facility] MPV 9.7 7.5 - 12.5 fL [facility] ABSOLUTE NEUTROPHILS 5,370 1,500 - 7,800 cells/uL [facility] ABSOLUTE LYMPHOCYTES 2,082 850 - 3,900 cells/uL [facility] ABSOLUTE MONOCYTES 502 200 - 950 cells/uL [facility] ABSOLUTE EOSINOPHILS 97 15 - 500 cells/uL [facility] ABSOLUTE BASOPHILS 49 0 - 200 cells/uL [facility] NEUTROPHILS 66.3 % [facility] LYMPHOCYTES 25.7 % [facility] MONOCYTES 6.2 % [facility] EOSINOPHILS 1.2 % [facility] BASOPHILS 0.6 % [facility] Blood BLOOD SPECIMEN / Unknown 01/05/2025 7:52 AM CDT 01/05/2025 7:52 AM CDT us Brandi TOLENTINO HEMATOLOGY Final Res ult [facility] [address] [place] [address], [place] [phone] [facility] [address] [place] [address] * FERRITIN (01/05/2025 7:52 AM CDT) FERRITIN 29 16 - 154 ng/mL [facility] Blood BLOOD SPECIMEN / Unknown 01/05/2025 7:52 AM CDT 01/05/2025 7:52 AM CDT us Brandi TOLENTINO CHEMISTRY Final Res ult [facility] [address] [place] [address], [place] [phone] [facility] [address] [facility] [place] [address] * PHYSIOLOGICAL CHEMIST THIN PREP PAP SCREEN IMAGED [[id number]] (01/07/2024 7:20 AM CDT) Case Report Gynecologic Cytology Report Case: [id number] Authorizing Provider: Brandi Pond PA Collected: 01/07/2024 0720 Ordering Location: [facility] Received: 01/07/2024 0748 Clinic First Screen: Brian Rodrigues Specimen: PHYSIOLOGICAL CHEMIST ThinPrep Vial Screening, Cervical 01/14/2024 1:58 PM CDT [facility] INTERPRETATION/ RESULT NEGATIVE FOR INTRAEPITHELIAL LESION OR MALIGNANCY (NIL) (none) 01/14/2024 1:58 PM CDT [facility] at 1358 CDT SPECIMEN ADEQUACY Satisfactory for evaluation No endocervical component seen 01/14/2024 1:58 PM CDT [facility] [employer] [facility] HPV REQUEST HPV not requested 2023 1:58 PM CDT [facility] [employer] [facility] Date of LMP 12/13/23 01/14/2024 1:58 PM CDT [facility] [employer] [facility] Last Pap Date 08/01/20 01/14/2024 1:58 PM CDT [facility] Last Pap Result NIL 1:58 PM CDT [facility] Abnormal Pap or [place] Bx in last 5 years No 01/14/2024 1:58 PM CDT [facility] Menstrual Status Irregular Periods 01/14/2024 1:58 PM CDT [facility] [employer] [facility] [place] Bx Done Today No 01/14/2024 1:58 PM CDT [facility] Additional Information None given 01/14/2024 1:58 PM CDT [facility] Comment: Cytology is screened at [facility] [employer] [facility] [facility], Central Laboratory - [address], [place] [address] and [facility] - [address] [place] [address] and [facility] - [address] [place] [address] Interpreted at [facility], Central Laboratory - [address], [place] [address] Automated Review Successful 01/14/2024 1:58 PM CDT [facility] Comment:Specimen processed s uccessfully by automated sales representative raw fibers device, [employer] System, [employer] Note The pap test is a [...] and malignant lesions. 01/14/2024 1:58 PM CDT [facility] Other (Cervical) Non-Blood / Unknown 01/07/2024 7:20 AM CDT 01/07/2024 7:48 AM CDT us Brandi TOLENTINO PATHOLOGY/CYTOLOGY Final Result [facility] [address] [place] [address], [place] from Last 3 Months or Most Recently Relevant to Health Maintenance Insurance [facility] [employer] Care Teams Water Systems Designer Relationship Specialty Start Date End Date Brandi Pond PA [address] [place] [address] PCP - General Physician Puppet Master 09/08/23
--- OUTSIDE RECORDS SUMMARY | 2025-02-09 12:47 | XMS_ITS | Encounter Summary ---
Author Organization [facility] Address [address] [place] [address] Care Team Providers Care Landscape Specialist Name Role Phone Brandi Pond Primary Care Provider [phone] Encounter Details Date Type Department Care Team (Latest Contact Info) Description 01/11/2025 Travel Social History Tobacco Use Types Packs/Day Years [...] on filedocumented in this encounter Care Teams Landscape Specialist Relationship Specialty Start Date End Date Brandi Pond PA [address] [place] [address] PCP - General Family Practice 03/03/24 documented as of this encounter
[2025-02-09 12:52] VITALS: BP 127/85; PULSE 84; RESP 18; TEMP 36.6; O2SAT 98; BMI 40.2
--- NOTE | 2025-02-09 13:42 | CRLHL7_ITS ---
For Patients: As a result of the Cures Act, medical imaging exams and procedure reports are released immediately into your electronic medical record. You may view this report before your referring provider. If you have questions, please contact your health care provider. INDICATION: RUQ pain COMPARISON: None TECHNIQUE: Ultrasound abdomen, limited, gallbladder, utilizing grayscale and color Doppler FINDINGS: Gallbladder: No stones or sludge. No wall thickening or pericholecystic fluid. No reported positive sonographic Wilson sign. Bile ducts: The common bile duct measures 3 mm in diameter. Imaged liver: Unremarkable IMPRESSION: Unremarkable gallbladder ultrasound Dictated by Gabe Boswell MD @ 02/09/2025 2:23:19 PM (Electronically Signed)
--- NOTE | 2025-02-09 13:43 | ED_ITS ---
HPI - Abdominal Pain General Date Seen: 02/09/25 Chief Complaint: Abdominal Pain Stated Complaint: Abdominal pain Time Seen by Provider: 02/09/25 13:24 Source: patient Mode of arrival: ambulatory Limitations: no limitations History of Present Illness HPI narrative: Patient is a 29-year-old female presenting to emergency department for right upper quadrant pain. She has a few other complaints but her main 1 is the right upper quadrant pain. She states this pain has been on and off now for the past month. She does feel like he gets worse at when she eats but cannot say for certain. Does still have a gallbladder. No other abdominal surgeries. Does have some nausea. Denies fevers or chills. Did have diarrhea the other day but otherwise no diarrhea constipation. Denies any dysuria or polyuria. Denies being . Denies any vaginal discharge. She is also having some right hip pain is been going on for the past month. Has not had any rashes. Is able to ambulate. States the pain feels like it is in the showing but not too much pain with movement. Describes the pain is more in the back of the right hip. Denies any injuries to the hip. Did states she had an episode of sharp chest pain that occurred couple days ago. She states that is very rare for her and is not having any pain or shortness of breath at this time. Finally did admit having further go 10 days ago and does admit to get some vertigo every month or so usually associated with headaches. She states the only difference with this occurrence was there was no headache. Does state her main complaint and the reason she came to the emergency department is the right upper quadrant pain. Related Data Home Medications ?Medication ?Instructions ?Recorded ?Confirmed albuterol sulfate 90 mcg/actuation 1 - 2 puff inhalati on Q4H PRN 06/16/23 09/01/24 aerosol inhaler (Ventolin HFA) dyspnea rimegepant 75 mg disintegrating 75 mg PO PRN 06/16/23 06/16/23 tablet (Nurtec ODT) fremanezumab-vfrm 225 mg/1.5 mL mg subcut 09/01/24 subcutaneous auto-injector (Ajovy) sertraline 100 mg tablet PO 02/09/25 Previous Rx's ?Medication ?Instructions ?Recorded ondansetron 4 mg disintegrating 4 mg PO Q6H #20 tabs 0 02/09/25 tablet Allergies Allergy/AdvReac Type Severity Reaction Status Date / Time amoxicillin Allergy Mild Rash Verified 12/16/23 23:36 Review of Systems Status of ROS Reports: 10 or more systems reviewed and unremarkable except as noted in History and below [facility] Medical History Eczema ?L30.9 - Dermatitis, unspecified (ICD-10) Mild intermittent asthma ?J45.20 - Mild intermittent asthma, uncomplicated (ICD-10) Depression ?F32.A - Depression, unspecified (ICD-10) ALEXIA (generalized anxiety disorder) ?F41.1 - Generalized anxiety disorder (ICD-10) Migraine headache ?G43.909 - Migraine, unspecified, not intractable, without status migrainosus (ICD-10) DVT (deep vein thrombosis) in ?O22.30 - Deep phlebothrombosis in , unspecified trimester (ICD-10) Surgical History History of carpal tunnel release ?Z98.890 - Other specified postprocedural states (ICD-10) History of meniscectomy of right knee ?Z98.890 - Other specified postprocedural states (ICD-10) Social History Smoking Status: Never smoker Do you use any of these nicotine containing products: None Second hand tobacco smoke exposure: Yes How often do you have a drink containing alcohol: monthly or less How many standard drinks containing alcohol do you have on a typical day: 3 or 4 How often do you have six or more drinks on one occasion: Less than monthly AUDIT-C Alcohol total score: 3 Non-prescribed substance use: denies use service: No Exam Narrative: Exam Narrative: Const: Well-nourished, Well-developed, in mild distress Eyes: PERRL, no conjunctival injection, and symmetrical lids HENT: Atraumatic external nose and ears. Moist mucous membranes. Neck: Symmetric, trachea midline, No thyromegaly. CVS: RRR, No murmurs or gallops. Peripheral pulses 2+ and equal in all extremities RESP: Unlabored respiratory effort. Clear to auscultation bilaterally. GI: Mild right upper quadrant tenderness, negative Wilson sign, Nondistended, No rebound or guarding. MSK:Extremities w/o deformity, Normal Active ROM, mild tenderness to the posterior right hip. Skin: Warm, Dry. No rashes or lesions. Neuro: Normal Muscle tone, No focal neurological deficits. Psych: Awake, Alert, & Oriented x3. Appropriate mood and affect. Const: Vital Signs, click to edit/add: Vital Signs - 24 hr 02/09/25 12:52 02/09/25 15:54 Temperature 98 F Pulse Rate [Pulse Oximeter] 84 78 Respiratory Rate 18 18 Blood Pressure [Ri t Upper Arm] 127/85 113/68 Pulse Oximetry 98 99 Oxygen Delivery Me thod Room Air Room Air Course Vital Signs Vital signs: Initial Vital Signs Temperature 98 F 02/09/25 12:52 Temperature Source Temporal Artery Scan 02/09/25 12:52 Pulse Rate 84 02/09/25 12:52 Respiratory Rate 18 02/09/25 12:52 Blood Pressure 127/85 02/09/25 12:52 Blood Pressure Mean 99 02/09/25 12:52 Blood Pressure Position Sitting 02/09/25 12:52 Pulse Oximetry 98 02/09/25 12:52 Oxygen Delivery Method Room Air 02/09/25 12:52 Vital Signs Temperature 98 F 02/09/25 12:52 Pulse Rate 84 02/09/25 12:52 Respiratory Rate 18 02/09/25 12:52 Blood Pressure 127/85 02/09/25 12:52 Pulse Oximetry 98 02/09/25 12:52 Oxygen Delivery Method Room Air 02/09/25 12:52 Temperature 98 F 02/09/25 12:52 Pulse Rate 78 02/09/25 15:54 Respiratory Rate 18 02/09/25 15:54 Blood Pressure 113/68 02/09/25 15:54 Pulse Oximetry 99 02/09/25 15:54 Oxygen Delivery Method Room Air 02/09/25 15:54 Medications Administered Medications: Discontinued Medications Generic Name Dose Route Start Last Admin Trade Name Freq PRN Reason Stop Dose Admin Ondansetron HCl 4 mg 02/09/25 13:42 02/09/25 14:07 Ondansetron 2 Mg/Ml Inj IVP 02/09/25 13:43 4 mg ONCE ONE Administration MDM - Abdominal Pain MDM Narrative Medical decision making narrative: Patient is a 29-year-old female presenting to emergency department for multiple complaints but her main concern is the right upper quadrant pain. For the vertigo this is a chronic issue I do not believe he needs further workup in the emergency department. She is currently asymptomatic from it. Seems very unlikely she fractured her hip and I believe an x-ray would be beneficial. No signs of septic joint or gout. Did have chest pain couple days ago and I will do an EKG and point of care troponin. For the abdominal pain on my concern is gallbladder and or liver disease. Will do a right upper quadrant ultrasound. Will also check lipase, CBC, BMP, urinalysis, urine test. Zofran given for her nausea. Patient's lab work returned showing no acute concerning abnormalities. Right upper quadrant ultrasound shows no acute concerning findings. EKG and troponin show no acute concerning findings. Considering chest pain was 2 days ago I do not believe repeat troponin is necessary. This time I cannot say exactly was causing his symptoms. We did look at the area of concern and I do not believe a CT scan would be beneficial. But most likely be unnecessary radiation for someone who is only 29 years old. I spoke to her and her family about this and they agree with this. She will be discharged with Zofran for nausea. Lab Data Labs: Lab Results 02/09/25 02/09/25 02/09/25 Range/Units 13:42 13:57 14:19 WBC 9.25 (4.50-11.00) K/uL RBC 4.98 (4.00-5.20) m/uL Hgb 14.3 (12.0-16.0) gm/dL Hct 42.0 (33.0-51.0) % MCV 84 (80-100) fL MCH 29 (26-34) pg MCHC 34 (32-36) gm/dL RDW Coeff of Nona 12.8 (11.5-15.5) % Plt Count 333 (140-440) K/uL Neut % (Auto) 63.4 (42.0-72.0) % Lymph % (Auto) 28.4 (20-44) % [place] % (Auto) 6.3 (0.0-11.0) % Eos % (Auto) 1.4 (0.0-7.0) % Baso % (Auto) 0.3 (0.0-3.0) % Neut # (Auto) 5.86 (1.7-7.0) K/uL Lymph # (Auto) 2.63 (0.90-2.90) K/uL [place] # (Auto) 0.60 (0.00-0.90) K/UL Eos # (Auto) 0.13 (0.00-0.50) K/uL Baso # (Auto) 0.03 (0.00-0.30) K/uL Abs Immat Gran (auto) 0.02 (0.00-0.30) K/uL Imm/Tot Granulo (auto) 0.2 % Sodium 139 (135-149) mmol/L Potassium 4.2 (3.6-5.1) mmol/L Chloride 106 (96-114) mmol/L Carbon Dioxide 26 (20-32) mmol/L Anion Gap 7 (7-15) mEq/L BUN 12 (5-24) mg/dL Creatinine 0.7 (0.5-1.5) mg/dL Estimated Creat Clear 130.54 Estimated GFR 121 ml/min Glucose 97 (60-115) mg/dL Calcium 9.4 (8.4-10.6) mg/dL Magnesium 2.0 (1.5-2.6) mg/dL Total Bilirubin 0.3 (0.1-1.5) mg/dL Direct Bilirubin 0.1 (0.0-0.5) mg/dL AST 36 H (12-35) U/L ALT 34 (4-35) U/L Alkaline Phosphatase 90 (40-150) U/L Total Protein 7.2 (6.0-8.3) g/dL Albumin 4.6 (3.3-5.0) g/dL Lipase 105 (23-300) U/L Urine Color Yellow (Yellow) Urine Appearance Clear (Clear) Urine pH 7.5 (5.0-8.5) Ur Specific [place] 1.020 (1.000-1.030) Urine Protein Negative (Negative) Urine Glucose (UA) Negative (Negative) Urine Ketones Negative (Negative) Urine Blood Negative (Negative) Urine Nitrite Negative (Negative) Urine Bilirubin Negative (Negative) Urine Urobilinogen 0.2 (0.2-1.0) Ur Leukocyte Esterase Negative (Negative) Urine RBC 0-2 (0-2) Urine WBC 0-2 (0-5) Ur Squamous Epith Cells Few (None-Few) Urine Bacteria Few A (None) Urine HCG, Qual Negative (Negative) POC Troponin I 0.01 (0.01-0.04) ng/ml Imaging Data US - abdomen: Attestation: I have reviewed the pertinent imaging results. Radiologist's impression: Unremarkable gallbladder ultrasound Dictated by Gabe Boswell MD @ 02/09/2025 2:23:19 PM ECG Data Attestation: I personally reviewed and interpreted this ECG as follows: Prior ECG tracings: available for review Interpretation: Normal sinus rhythm with rate 76 beats per minute, normal intervals, no ST or T- wave abnormalities. Appears similar previous EKG on file Discharge Plan Discharge Clinical Impression: Abdominal pain Patient Disposition: Home, Self-Care Condition: Stable Instructions: Abdominal Pain (ED) Additional Instructions: I am not able to determine was causing abdominal pain at this time. I do recommend following up with the primary care provider and possibly being referred to GI if symptoms persist. Use the Zofran as needed for your nausea. Return to emergency department for new or worsening symptoms. Prescriptions: New ondansetron 4 mg tablet,disintegrating 4 mg PO Q6H Qty: 20 0RF No Action albuterol sulfate [Ventolin HFA] 90 mcg/actuation HFA aerosol inhaler 1 - 2 puff inhalation Q4H PRN (Reason: dyspnea) Nurtec ODT 75 mg tablet,disintegrating 75 mg PO PRN Ajovy Autoinjector 225 mg/1.5 mL auto-injector SUBCUT Patient Comments: [NO ORIGINAL SIG] sertraline 100 mg tablet PO Follow Up/Referrals: Brandi Pond PA-C [Primary Care Provider, Family Practice] Stand Alone Forms: [employer] Info Instructions
[2025-02-09] MEDS: ONDANSETRON 2 MG/ML inj 4 MG IVP (14:07)
[2025-02-09 14:19] LABS: Hematocrit* 42.0 % (33.0-51.0); Hemoglobin* 14.3 gm/dL (12.0-16.0); Immature Granulocytes Abs Auto 0.02 K/uL (0.00-0.30); Immature Granulocytes Pct Auto 0.2 %; Lymphocytes Absolute Auto 2.63 K/uL (0.90-2.90); Mean Corpuscular HGB Conc 34 gm/dL (32-36); Mean Corpuscular Hemoglobin 29 pg (26-34); Mean Corpuscular Volume 84 fL (80-100); RDW Coefficient of Variation % 12.8 % (11.5-15.5); Red Blood Count* 4.98 m/uL (4.00-5.20); White Blood Count* 9.25 K/uL (4.50-11.00)
[2025-02-09 14:28] LABS: Troponin, Point-of-Care* 0.01 ng/ml (0.01-0.04)
[2025-02-09 14:30] LABS: Albumin* 4.6 g/dL (3.3-5.0); Chloride* 106 mmol/L (96-114)
[2025-02-09 14:31] LABS: Potassium* 4.2 mmol/L (3.6-5.1); Sodium* 139 mmol/L (135-149)
[2025-02-09 14:33] LABS: Anion Gap 7 mEq/L (7-15); Blood Urea Nitrogen* 12 mg/dL (5-24); Carbon Dioxide* 26 mmol/L (20-32); Creatinine* 0.7 mg/dL (0.5-1.5); Est. Creatinine Clearance* 130.54; Estimated Glomerular Filt Rate 121 ml/min
[2025-02-09 14:34] LABS: Alanine Aminotransferase* 34 U/L (4-35); Alkaline Phosphatase* 90 U/L (40-150); Aspartate Amino Transferase* 36 U/L (12-35); Bilirubin Direct* 0.1 mg/dL (0.0-0.5); Bilirubin Total* 0.3 mg/dL (0.1-1.5); Calcium* 9.4 mg/dL (8.4-10.6); Glucose* 97 mg/dL (60-115); Total Protein* 7.2 g/dL (6.0-8.3)
[2025-02-09 14:35] LABS: Slide Review Reflex No
[2025-02-09 15:19] LABS: Appearance Urine Clear (Clear)
[2025-02-09 15:54] VITALS: BP 113/68; PULSE 78; RESP 18; O2SAT 99
[2025-02-09 15:59] LABS: Ur HCG Qualitative* Negative (Negative)
== END 2025-02-09 16:08 | disposition home or self-care (01) ==
PROVIDERS: Emergency Provider Student in an Organized Health Care Education/Training Program; PCP Student in an Organized Health Care Education/Training Program
DX: R10.11 Right upper quadrant pain (principal)
CPT/HCPCS: 36415; 76705; 80048; 80076; 81001; 81025; 83690; 83735; 84484; 85025; 87086; 93005; 96374; 99284; 99285; J2405